=== PATIENT | female | born 1995 | race Caucasian/White ===

== ENCOUNTER → 2024-07-23 | Outpatient (CLI) | payer BC, SELFPAY ==
[2024-07-23 14:29] LABS: Basophils # (Auto) 0.1 Thou/mm3 (0.0-0.2); Basophils % (Auto) 1 % (0-2.5); Eosinophils # (Auto) 0.2 Thou/mm3 (0.0-0.5); Eosinophils % (Auto) 2 % (0-10); Hematocrit 34.3 % (36.0-46.0); Hemoglobin 10.7 g/dL (12.0-16.0); Immature Granulocytes % (Auto) 0 % (0-0); Immature Granulocytes Auto 0.04 Thou/mm3 (0.00-0.00); Lymphocytes # (Auto) 2.7 Thou/mm3 (1.0-4.8); Lymphocytes % (Auto) 21 % (10-50); Mean Corpuscular HGB Conc 31.2 g/dl (31.0-37.0); Mean Corpuscular Hemoglobin 22.9 pg (25.0-35.0); Mean Corpuscular Volume 73 fL (80-100); Monocytes % (Auto) 8 % (0-12); Neutrophils # (Auto) 9.1 Thou/mm3 (1.8-7.7); Neutrophils % (Auto) 70 % (37-80); Nucleated Red Blood Cell % 0 /100 WBC (0); Platelet Count 430 Thou/mm3 (140-440); Red Blood Count 4.67 Miln/mm3 (4.00-5.20); White Blood Count 13.1 Thou/mm3 (3.6-11.0)
[2024-07-23 15:02] LABS: Beta HCG,Quantitative 16194 mIU/mL (<5.0)
== END | disposition home or self-care (01) ==
LOC: COPL 13:19
PROVIDERS: PCP Physician Assistant; Referring Provider Obstetrics & Gynecology; Visit Provider Obstetrics & Gynecology
DX: O03.4 Incomplete spontaneous abortion without complication (principal)
CPT/HCPCS: 36415; 84702; 85025; 86850; 86900; 86901

== ENCOUNTER → 2024-07-25 | Outpatient (CLI) | payer BC, SELFPAY ==
[2024-07-25 09:31] LABS: Beta HCG,Quantitative 23046 mIU/mL (<5.0)
== END | disposition home or self-care (01) ==
PROVIDERS: PCP Obstetrics & Gynecology; Referring Provider Obstetrics & Gynecology; Visit Provider Obstetrics & Gynecology
DX: O03.4 Incomplete spontaneous abortion without complication (principal)
CPT/HCPCS: 36415; 84702

== ENCOUNTER → 2024-08-01 | Outpatient (CLI) | payer BC, SELFPAY ==
--- NOTE | 2024-08-01 12:30 | XR_ITS ---
Examination: OB Transvaginal ultrasound of the pelvis, complete Technique: Transvaginal sonographic images pelvis performed using vallejo scale imaging Exam date and time: August 01, 2024 1222 hrs. Indications: Vaginal bleeding episodes beginning one week ago. Findings: Uterus 9.5 cm pole 0.9 cm corresponds to 6 week 6 day gestational age, cardiac motion 131 BPM Adjacent subchorionic hemorrhage 6 x 8 x 9 mm Right ovary 2.9 cm arterial flow 15 mm hemorrhagic cyst Left ovary obscured by bowel gas Impression: Viable intrauterine gestation 6 weeks 6 days Recommend short-term follow-up transvaginal pelvic sonography given the subchorionic hemorrhage
== END | disposition home or self-care (01) ==
LOC: CDIM 12:15
PROVIDERS: PCP Nurse Practitioner Family; Referring Provider Obstetrics & Gynecology; Visit Provider Obstetrics & Gynecology
DX: O20.0 Threatened abortion (principal); Z3A.01 Less than 8 weeks gestation of pregnancy
CPT/HCPCS: 76817

== ENCOUNTER 2024-09-10 13:15 | Outpatient (AMB) | payer BC, MEDICAID, SELFPAY ==
[2024-09-10 13:38] VITALS: BP 128/84; PULSE 83; RESP 16; TEMP 36.8; O2SAT 98; BMI 39.9
--- NOTE | 2024-09-10 13:38 | AMB.OBINITIA ---
Vital Signs 09/10/24 13:38 Height 1.6 m Height Method Stated Weight 102.115 kg Weight Measurement Method Standing Scale BMI 39.9 BP 128/84 Blood Pressure Source Manual Cuff- Auscultation Blood Pressure Location Left Upper Arm Position Sitting Respiration 16 Pulse 83 Pulse Source Monitor Temp 98.3 F Temp Source Oral Pulse Oximetry (%) 98 Oxygen Delivery Method Room Air Allergies/Home Meds Allergies & Medications Allergies NKA* Allergy (Uncoded 09/10/24 13:39) Medication Reconciliation ferrous sulfate 325 mg (65 mg iron) tablet 325 mg PO QDAY 90 days #90 tabs 09/10/24 [Rx] folic acid 1 mg tablet 1 mg PO QDAY 90 days #90 tabs 09/10/24 [Rx] Intake Visit Data Collection New Patient or Established: Established Patient (seen at [facility] within 3 years) Reason for Visit:: CARE INITIAL Seen by Clinical Staff ONLY (RN/MA): No Concert Or Lecture Hall Manager Required: No Do You Feel Safe at Home: Yes Authorities Contacted: N/A PCP or OBGYN visit in last 3 months: Yes Hx Now: Yes Are you currently on any form of Control: No Last menstrual period: 06/10/24 Pain Present Currently: No Pain Scale Used: Galarza-Reyna/Numerical Pain scale:: 0 Smoking Status Smoking Status: Never smoker Questionnaires Covid-19 Vaccine Questionnaire Has patient been vacinated for Covid-19 Have you been vacinated for Covid-19: Yes PHQ-9 PHQ-2 Over the last 2 weeks, how often have you been bothered by any of the following problems? 1. Little interest or pleasure in doing things: not at all 2. Feeling down, depressed, or hopeless: not at all Total score: 0 PHQ-9 3. Trouble falling or staying asleep, or sleeping too much: Not at all 4. Feeling tired or having little energy: Not at all 5. Poor appetite or overeating: Not at all 6. Feeling bad about yourself - or that you are a failure or have let yourself or your family down: Not at all 7. Trouble concentrating on things, such as reading the newspaper or watching television: Not at all 8. Moving or speaking so slowly that other people could have noticed? - Or the opposite - being so fidgety or restless that you have been moving around a lot more than usual: not at all 9. Thoughts that you would be better off or of hurting yourself in some way: Not at all Total score: 0 Source: Developed by Drs. Nicolas Gregorio, Laura Lynch, Russell Martinez and colleagues, with an educational adilia from [employer]. Depression screen completed yes Social History Living Situation History Lives With: Family Housing: House Tobacco History Smoking Status: Never smoker Second Hand Smoke Exposure: No Alcohol History Alcohol Intake: Never Substance Use History Substance Use: NONE Domestic Abuse History Do You Feel Safe at Home: Yes Past Medical History Past Medical History Have you ever been diagnosed with any of the following: Neurological Problems Cerebrovascular Accident (CVA): No Transient Ischemic Attacks (TIA): No Dementia: No Guillain-Clements Syndrome: No Capps's Palsy: No Cardiology Problems Myocardial Infarction: No Cardiac Arrhythmia: No Atrial Fibrillation: No Angina: No Respiratory Problems Chronic Obstructive Pulmonary Disease (COPD): No Asthma: No Bronchitis: No Tuberculosis: No Hx Cough: No Cough: No Wheezing: No Chest Deformities: No Smoking: No Smoking Cessation Counseling: No Smoking Exposure: No Tobacco Use: No Stomache/Intestinal Problems Liver Cancer: No Hepatitis: No Cirrhosis: No Gall Bladder Disease: No Genital/Urinary Problems Chronic Kidney Disease: No Renal Disease: No Kidney Stones: No Reproductive Problems Breast Cancer: No Endometriosis: No Fibroids: No Musculoskeletal Problems Muscular Dystrophy: No Myasthenia Gravis: No Marfan's Syndrome: No Bone Cancer: No Arthritis: No Fractures: No Head,Eye,Nose,Throat Problems Cataracts: No Glaucoma: No Blind: No Retinal Detachment: No Macular Degeneration: No Deafness: No Endocrine Problems Diabetes Mellitus Type 1: No Diabetes Mellitus Type 2: No [place]'s Disease: No Graves' Disease: No Blood Problems Anemia: No Leukemia: No Hemophilia: No Thalassemia: No Sickle Cell Disease: No Clotting Problems: No Psychologic Problems Schizophrenia: No Recreational Drug Use: No Bipolar Disorder: No Depression: No Anxiety: No Behavior Problems: No Other Problems Hospitalization: No Autoimmune Disease: No Down Syndrome: No Surgical History Angioplasty: No Appendectomy: No Bariatric Surgery: No OB Initial Visit Menstrual History Menstrual reliability: definite Flow: normal Menstrual regularity: regular Monthly: Yes Age at menarche: 12 On control pills at conception: Yes Date of positive home test: 07/21/24 Associated symptoms (LMP): Denies amenorrhea, nausea, vomiting, fatigue, breast tenderness, urinary frequency, irritability, bloating or other OB History : 1 Para: 0 # of Living Children: 0 Infection History & Risk Evaluation History of STDs: none Genetic Screening & History Genetic Screening/Teratology Counseling - Includes patient, baby's father, or anyone in either family with: 1. Patient's age 35 years or older as of estimated date of delivery: No 2. Thalassemia (Tajik, [place]ian, Mediterranean, or Background); MCV less than 80: No 3. Neural Tube Defect (Meningomyelocele, Spina Bifida, or Anencephaly): No 4. Congenital Heart Defect: No 5. Down Syndrome: No 6. Jarred-Sachs (Ashkenazi Hoahaoism, Cajun, [place]): No 7. Cristopher Disease (Ashkenazi Hoahaoism): No 8. Familial Dysautonomia (Ashkenazi Hoahaoism): No 9. Sickle Cell Disease or Trait (): No 10. Hemophilia or other blood disorders: No 11. Muscular Dystrophy: No 12. Cystic Fibrosis: No 13. [place]'s Chorea: No 14. Mental Retardation/Autism: No 15. Other inherited genetic or chromosomal disorder: No 16. Maternal Metabolic Disorder (EG,TYPE 1 Diabetes, PKU): No 17. Patient or baby's father had a child with defects not listed above: No 18. Recurrent loss or a stillbirth: No 19. Medications (including supplements, vitamins, herbs or otc drugs)/illicit/recreational drugs/alcohol since last menstrual period: No 20. Any other: No Infection History 1. Live with someone with TB or exposed to TB: No 2. Rash or viral illness since last menstrual period: No 3. Hepatitis B,C: No Other (see comments) Source: [employer] Review of Systems Constitutional Constitutional: Denies fatigue Gastrointestinal Gastrointestinal: Denies bloating, Denies nausea and Denies vomiting Genitourinary Genitourinary: Denies amenorrhea and Denies urinary frequency Psychiatric Psychiatric: Denies irritability Endocrine Endocrine: Denies fatigue Office Procedures OB Clinic LOC & Office Proc's Nursing/Assessment Patient Status: Established Patient OB Clinic Nursing Assessment: Medication Reconciliation, Update PMH in EMR and Vital Signs OB Clinic Coordination of Care: Complex Care and Chronic Disease 1-5, Consent,records obtained, informed consent, Education Simp Pt/Fam, Lab and Imaging orders, Results/Orders obtained and Staff clarify orders Special Needs: Heart tones Established Patient Charge Established Patient Point Assignment: 135 Established Patient Point Charge: EP Level 4 (120-155) Bedside Ultrasounds US Transabdominal >14 weeks at bedside: Yes
== END 2024-09-10 14:02 | disposition home or self-care (01) ==
LOC: HODSOBC 13:15
PROVIDERS: PCP Nurse Practitioner Family; Referring Provider Nurse Practitioner Family; Supervising Provider Obstetrics & Gynecology; Visit Provider Obstetrics & Gynecology
DX: O09.891 Supervision of other high risk pregnancies, first trimester (principal); O99.011 Anemia complicating pregnancy, first trimester; Z3A.13 13 weeks gestation of pregnancy
CPT/HCPCS: 76805; 99214; G0463

== ENCOUNTER 2024-10-08 14:11 | Outpatient (AMB) | payer BC, MEDICAID, SELFPAY ==
[2024-10-08 14:26] VITALS: BP 136/86; PULSE 86; RESP 18; TEMP 36.2; O2SAT 97; BMI 40.1
--- NOTE | 2024-10-08 14:26 | OBCLNT_ITS ---
Vital Signs 10/08/24 14:26 Height 1.6 m Height Method Stated Weight 102.625 kg Weight Measurement Method Standing Scale BMI 40.1 BP 136/86 H Blood Pressure Source Automatic Cuff Blood Pressure Location Left Upper Arm Position Sitting Respiration 18 Pulse 86 Pulse Source Monitor Temp 97.2 F Temp Source Oral Pulse Oximetry (%) 97 Oxygen Delivery Method Room Air Allergies/Home Meds Allergies & Medications Allergies NKA* Allergy (Uncoded 10/08/24 14:29) Medication Reconciliation ferrous sulfate 325 mg (65 mg iron) tablet 325 mg PO QDAY 90 days #90 tabs 09/10/24 [Rx Confirmed 10/08/24] folic acid 1 mg tablet 1 mg PO QDAY 90 days #90 tabs 09/10/24 [Rx Confirmed 10/08/24] Intake Visit Data Collection New Patient or Established: Established Patient (seen at [facility] within 3 years) Reason for Visit:: - Routine visit at 17 weeks and 1 day gestation Seen by Clinical Staff ONLY (RN/MA): No Setter Helper Required: No Do You Feel Safe at Home: Yes Authorities Contacted: N/A PCP or OBGYN visit in last 3 months: Yes Date of Last PCP or OBGYN visit: 10/08/24 Hx Now: Yes Are you currently on any form of Control: No Pain Present Currently: No Pain Scale Used: Galarza-Reyna/Numerical Pain scale:: 0 Smoking Status Smoking Status: Never smoker Questionnaires Covid-19 Vaccine Questionnaire Has patient been vacinated for Covid-19 Have you been vacinated for Covid-19: Yes PHQ-9 PHQ-2 Over the last 2 weeks, how often have you been bothered by any of the following problems? 1. Little interest or pleasure in doing things: not at all 2. Feeling down, depressed, or hopeless: not at all Total score: 0 PHQ-9 3. Trouble falling or staying asleep, or sleeping too much: Not at all 4. Feeling tired or having little energy: Not at all 5. Poor appetite or overeating: Not at all 6. Feeling bad about yourself - or that you are a failure or have let yourself or your family down: Not at all 7. Trouble concentrating on things, such as reading the newspaper or watching television: Not at all 8. Moving or speaking so slowly that other people could have noticed? - Or the opposite - being so fidgety or restless that you have been moving around a lot more than usual: not at all 9. Thoughts that you would be better off or of hurting yourself in some way: Not at all Total score: 0 If you checked off any problems, how difficult have these problems made it for you to do your work, take care of things at home, or get along with other people?: not difficult at all Source: Developed by Drs. Nicolas Gregorio, Laura Lynch, Russell Martinez and colleagues, with an educational adilia from [employer]. Depression screen completed yes Social History Living Situation History Lives With: Family Housing: House Tobacco History Smoking Status: Never smoker Second Hand Smoke Exposure: No Alcohol History Alcohol Intake: Never Substance Use History Substance Use: NONE Domestic Abuse History Do You Feel Safe at Home: Yes Past Medical History Past Medical History Have you ever been diagnosed with any of the following: Neurological Problems Cerebrovascular Accident (CVA): No Transient Ischemic Attacks (TIA): No Dementia: No Guillain-[place] Syndrome: No Capps's Palsy: No Cardiology Problems Myocardial Infarction: No Cardiac Arrhythmia: No Atrial Fibrillation: No Angina: No Respiratory Problems Chronic Obstructive Pulmonary Disease (COPD): No Asthma: No Bronchitis: No Tuberculosis: No Hx Cough: No Cough: No Wheezing: No Chest Deformities: No Smoking: No Smoking Cessation Counseling: No Smoking Exposure: No Tobacco Use: No Stomache/Intestinal Problems Liver Cancer: No Hepatitis: No Cirrhosis: No Gall Bladder Disease: No Genital/Urinary Problems Renal Disease: No Kidney Stones: No Reproductive Problems Breast Cancer: No Endometriosis: No Fibroids: No Musculoskeletal Problems Muscular Dystrophy: No Myasthenia Gravis: No Marfan's Syndrome: No Bone Cancer: No Arthritis: No Fractures: No Head,Eye,Nose,Throat Problems Cataracts: No Glaucoma: No Blind: No Retinal Detachment: No Macular Degeneration: No Deafness: No Endocrine Problems Diabetes Mellitus Type 1: No Diabetes Mellitus Type 2: No [place]ab[place]'s Disease: No Graves' Disease: No Blood Problems Anemia: No Leukemia: No Hemophilia: No Thalassemia: No Sickle Cell Disease: No Clotting Problems: No Psychologic Problems Schizophrenia: No Recreational Drug Use: No Bipolar Disorder: No Depression: No Anxiety: No Behavior Problems: No Other Problems Hospitalization: No Down Syndrome: No Surgical History Angioplasty: No Appendectomy: No Bariatric Surgery: No History of Present Illness HPI Narrative - Ansley Gore is a 29-year-old at 17 weeks and 1 day gestation presenting for a routine visit. - Patient's estimated due date is March 17, 2025, with a last menstrual period of June 10, 2024. - She reports no current complaints or symptoms. - At approximately 6 weeks gestation, patient experienced one episode of vaginal bleeding. - This prompted an emergency room visit where a transvaginal ultrasound confirmed a viable intrauterine measuring 6 weeks and 6 days. - Patient denies any further episodes of vaginal bleeding since the initial incident. - She also denies any current cramping. - Patient appears to be adhering to care recommendations, attending scheduled appointments and completing ordered laboratory tests. No contractions/ LOF/VB, reports good FM No PICHARDO/VC/RUQ/Epig pain Care OB Visit Log OB Flowsheet Initial Weight: Not Recorded Date -?-?-?-?-?-?-?-?-?-?-?-?- EGA Weight Edema CTX Effacement BP Fundal ht Pres Dilation Effacement Station Visit Note Alb Glu FHR Mov 10/08/24 -?-?-?-?-?-?-?-?-?-?-?-?- 17w 1d 102.625 kg 136/86 Jackeline Gore, 29 y/o at 17w1d ([place] 03/17/2025, LMP 06/10/2024), presents for routine care. She reports no current symptoms and continues to follow care recommendations. At 6 weeks gestation, she experienced a single episode of vaginal bleeding, resolved without recurrence. No contractions, LOF, VB, or cramping. movement is appropriate. Bedside ultrasound shows active fetus with identifiable anatomy and FHR of 154 bpm. Labs show rubella non-immunity, trace ketonuria, and all other infectious screenings negative. Maternal serum screen negative; fetus is female. Plan: Follow up with [facility] for 2nd trimester anatomy ultrasound (patient to expect scheduling call within 1?2 weeks) Review and provide lab and genetic testi ng results, including gender Encourage hydration and small, frequent meals to address ketonuria Routine counseling and monitori ng for signs of labor or complications Follow up at next scheduled visit Ansley Gore, 29 y/o G1P 0 at 17w1d ([place] 03/17/2025, LMP 06/10/2024), presents for routine care. She reports no current symptoms and continues to follow care recommendations. At 6 weeks gestation, she experienced a single episode of vaginal bleeding, resolved without recurrence. No contractions, LOF, VB, or cramping. movement is appropriate. Bedside ultrasound shows active fetus with identifiable anatomy and FHR of 154 bpm. Labs show rubella non-immunity, trace ketonuria, and all other infectious screenings negative. Maternal serum screen negative; fetus is female. Plan: Follow up with [facility] for 2nd trimester anatomy ultrasound (patient to expect scheduling call within 1?2 weeks) Review and provide lab and genetic testi ng results, including gender Encourage hydration and small, frequent meals to address ketonuria Routine counseling and monitori ng for signs of labor or complications Follow up at next scheduled visit - Date: 10/02/2024 - Hepatitis B: Negative - Hepatitis C: Negative - VDRL (Syphilis): Non-reactive - Rubella: Non-immune - Blood Group: O positive - Antibody Screen: Negative - Gonorrhea: Negative - Chlamydia: Negative - CBC: - Hemoglobin: 12.7 g/dL - Hematocrit: 39.4% - Platelet count: 322 - Urinalysis: - Ketones: 1+ - Other parameters: Within normal li mits - Maternity Genome Test: Negative for all tested aneuploidies - sex: Female VERNON Calculator Estimated Delivery Date Method Current WG Current Estimate 03/17/25 LMP (Certain) 17w 3d Other Estimates 03/14/25 Ultrasound #1 17w 6d Exam General General Appearance: alert, in no apparent distress and healthy appearing Head Head exam: atraumatic Neck Neck exam: Present normal inspection and trachea midline Chest Chest inspection: Present normal inspection and symmetric chest wall rise External exam: Present normal external exam; Absent tenderness Neuro Neurological exam: Present oriented X3 Psych Psychiatric exam: Present normal affect and normal mood Assessment & Plan Diagnosis / Problem List (1) Supervision of high risk , unspecified, first trimester: Status: Acute Plan Problem List - , 17 weeks and 1 day - Rubella non-immune status - Ketonuria Assessment - Intrauterine at 17 weeks and 1 day gestation - Estimated due date of 03-17-2025 - heart rate 154 bpm - Previous episode of vaginal bleeding at 6 weeks, resolved - Rubella non-immune - Blood type O positive - Hemoglobin 12.7 g/dL, hematocrit 39.4% - Urine ketones 1+ - Negative for hepatitis B, hepatitis C, syphilis, gonorrhea, and chlamydia - Negative maternal serum screen for tested aneuploidies - Female fetus Plan - Follow up with [facility] for 2nd trimester ultrasound (referral sent, patient should expect call within 1-2 weeks) - Provide patient with lab results, including genetic testing results and gender information Educated the patient on labor signs, including regular contractions, lower back pain, and changes in vaginal discharge. Advised avoiding heavy lifting and getting adequate rest. Instructed to contact the office immediately if any signs occur. Discussed the importance of a balanced diet rich in folic acid, iron, and calcium, and provided a list of recommended and to-avoid foods. Emphasized avoiding high-sugar foods to reduce gestational diabetes risk. Encouraged hydration and frequent, small meals for energy.. Office Procedures OB Clinic LOC & Office Proc's Nursing/Assessment Patient Status: Established Patient OB Clinic Nursing Assessment: BP Monitoring, Medication Reconciliation, Update PMH in EMR and Vital Signs OB Clinic Coordination of Care: Consent,records obtained, informed consent, Education Simp Pt/Fam and Staff clarify orders Special Needs: Heart tones Established Patient Charge Established Patient Point Assignment: 105 Established Patient Point Charge: EP Level 3 (80-115)
== END 2024-10-08 15:10 | disposition home or self-care (01) ==
LOC: HODSOBC 14:11
PROVIDERS: PCP Obstetrics & Gynecology; Referring Provider Obstetrics & Gynecology; Supervising Provider Obstetrics & Gynecology; Visit Provider Obstetrics & Gynecology
DX: O09.92 Supervision of high risk pregnancy, unspecified, second trimester (principal); Z3A.17 17 weeks gestation of pregnancy; Z78.9 Other specified health status
CPT/HCPCS: 99213; G0463

== ENCOUNTER 2024-11-05 13:40 | Outpatient (AMB) | payer BC, MEDICAID, SELFPAY ==
--- NOTE | 2024-11-05 13:58 | OBCLNT_ITS ---
Vital Signs 11/05/24 13:59 Height 1.6 m Height Method Stated Weight 104.893 kg Weight Measurement Method Standing Scale BMI 40.9 BP 126/80 Blood Pressure Source Automatic Cuff Blood Pressure Location Right Upper Arm Position Sitting Respiration 18 Pulse 90 Pulse Source Monitor Temp 97.8 F Temp Source Oral Pulse Oximetry (%) 99 Oxygen Delivery Method Room Air Allergies/Home Meds Allergies & Medications Allergies NKA* Allergy (Uncoded 11/05/24 13:59) Medication Reconciliation ferrous sulfate 325 mg (65 mg iron) tablet 325 mg PO QDAY 90 days #90 tabs 09/10/24 [Rx Confirmed 11/05/24] folic acid 1 mg tablet 1 mg PO QDAY 90 days #90 tabs 09/10/24 [Rx Confirmed 11/05/24] Intake Visit Data Collection New Patient or Established: Established Patient (seen at [facility] within 3 years) Reason for Visit:: CARE Seen by Clinical Staff ONLY (RN/MA): No 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 1. Little interest or pleasure in doing things: not at all 2. Feeling down, depressed, or hopeless: not at all Total score: 0 PHQ-9 3. Trouble falling or staying asleep, or sleeping too much: Not at all 4. Feeling tired or having little energy: Not at all 5. Poor appetite or overeating: Not at all 6. Feeling bad about yourself - or that you are a failure or have let yourself or your family down: Not at all 7. Trouble concentrating on things, such as reading the newspaper or watching television: Not at all 8. Moving or speaking so slowly that other people could have noticed? - Or the opposite - being so fidgety or restless that you have been moving around a lot more than usual: not at all 9. Thoughts that you would be better off or of hurting yourself in some way: Not at all Total score: 0 Source: Developed by Drs. Nicolas Gregorio, Laura Lynch, Russell Martinez and colleagues, with an educational adilia from [employer]. 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 No contractions, LOF, VB and reports good FM. Patient reports headaches that came and went about a week ago. Denies VC, and epigastric pain. - Ansley Gore is a 29-year-old at 21 weeks and 1 day gestation presenting for a routine visit. VERNON: March 20, 2025. - Patient reports feeling movement. - She experienced headaches about a week ago: - Intermittent in nature - Resolved spontaneously - Denies nausea, vomiting, or cramping. - Patient attended a gender reveal green party last weekend and now knows the baby's gender. Care OB Visit Log OB Flowsheet Initial Weight: Not Recorded Date -?-?-?-?-?-?-?-?-?-?-?-?- EGA Weight BP Alb Glu CTX Pres Fundal ht FHR Mov Dilation Station Effacement Hx Notes Visit Note 10/08/24 -?-?-?-?-?-?-?-?-?-?-?-?- 17w 1d 102.625 kg 136/86 Ansley Gore, 29 y/o at 17w1d (VERNON 03/17/2025, LMP 06/10/2024), presents for routine care. She reports no current symptoms and continues to follow care recommendations. At 6 weeks gestation, she experienced a single episode of vaginal bleeding, resolved without recurrence. No contractions, LOF, VB, or cramping. movement is appropriate. Bedside ultrasound shows active fetus with identifiable anatomy and FHR of 154 bpm. Labs show rubella non-immunity, trace ketonuria, and all other infectious screenings negative. Maternal serum screen negative; fetus is female. Plan: Follow up with [facility] for 2nd trimester anatomy ultrasound (patient to expect scheduling call within 1?2 weeks) Review and provide lab and genetic testi ng results, including gender Encourage hydration and small, frequent meals to address ketonuria Routine counseling and monitori ng for signs of labor or complications Follow up at next scheduled visit Ansley Gore, 29 y/o G1P 0 at 17w1d (VERNON 03/17/2025, LMP 06/10/2024), presents for routine care. She reports no current symptoms and continues to follow care recommendations. At 6 weeks gestation, she experienced a single episode of vaginal bleeding, resolved without recurrence. No contractions, LOF, VB, or cramping. movement is appropriate. Bedside ultrasound shows active fetus with identifiable anatomy and FHR of 154 bpm. Labs show rubella non-immunity, trace ketonuria, and all other infectious screenings negative. Maternal serum screen negative; fetus is female. Plan: Follow up with [facility] for 2nd trimester anatomy ultrasound (patient to expect scheduling call within 1?2 weeks) Review and provide lab and genetic testi ng results, including gender Encourage hydration and small, frequent meals to address ketonuria Routine counseling and monitori ng for signs of labor or complications Follow up at next scheduled visit - Date: 10/02/2024 - Hepatitis B: Negative - Hepatitis C: Negative - VDRL (Syphilis): Non-reactive - Rubella: Non-immune - Blood Group: O positive - Antibody Screen: Negative - Gonorrhea: Negative - Chlamydia: Negative - CBC: - Hemoglobin: 12.7 g/dL - Hematocrit: 39.4% - Platelet count: 322 - Urinalysis: - Ketones: 1+ - Other parameters: Within normal [facility] - Maternity Genome Test: Negative for all tested aneuploidies - sex: Female 11/05/24 -?-?-?-?-?-?-?-?-?-?-?-?- 21w 1d 104.893 kg 126/80 at 21w1d, presents for routine care. VERNON 03/20/25. Reports good movement. Had intermittent headaches one week ago, now resolved. Denies contractions, LOF, VB, nausea, or vomiting. FHT 160 bpm. Plan: Glucose tolerance test ordered wit h fasting instructions. Next visit at 24 weeks. Tylenol PRN for headache. Follow-up on [facility] referral. Routine counseling provided. VERNON Calculator Estimated Delivery Date Method Current WG Current Estimate 03/17/25 LMP (Certain) 23w 2d Other Estimates 03/14/25 Ultrasound #1 23w 5d Exam General General Appearance: alert, in no apparent distress and healthy appearing Head Head exam: atraumatic Neck Neck exam: Present normal inspection and trachea midline Chest Chest inspection: Present normal inspection and symmetric chest wall rise External exam: Present normal external exam; Absent tenderness Neuro Neurological exam: Present oriented X3 Psych Psychiatric exam: Present normal affect and normal mood Office Procedures OB Clinic LOC & Office Proc's Nursing/Assessment Patient Status: Established Patient OB Clinic Nursing Assessment: Medication Reconciliation, Update PMH in EMR and Vital Signs OB Clinic Coordination of Care: Complex Care and Chronic Disease 1-5, Consent,records obtained, informed consent, Education Simp Pt/Fam, Lab and Imaging orders, Results/Orders obtained and Staff clarify orders Special Needs: Heart tones Established Patient Charge Established Patient Point Assignment: 135 Established Patient Point Charge: EP Level 4 (120-155) Assessment & Plan Diagnosis / Problem List (1) Supervision of high risk , unspecified, first trimester: Status: Acute Plan Problem List - , 21 weeks and 1 day - Headache Assessment at 21 weeks and 1 day gestation with VERNON of March 20, 2025, presenting for routine visit. Patient reports feeling movement. Denies nausea, vomiting, or cramping. Patient experienced intermittent headaches approximately one week ago. heart rate auscultated at 160 bpm, which is within normal range. Patient recently had a gender reveal. No other significant concerns or complications reported. Plan - Perform glucose tolerance test for gestational diabetes screening (patient to fast for 8 hours before the test) - Schedule next appointment at 24 weeks gestation - Patient advised to take Tylenol (up to 1000mg daily) for headaches if needed - Follow up on [facility] Ultrasound referral status 1. Progress Reviewed gestational age, growth, and heart rate. Planned frequent visits (every 2 weeks until 36 weeks, then weekly). 2. Instructed patient to monitor movements and report decreases immediately. 3. Testing Counseled on routine third-trimester labs per guidelines. Discussed potential need for ultrasound or monitoring based on risk factors. 4. Preeclampsia Precaution Educated on preeclampsia signs: severe headache, vision changes, right upper quadrant pain, sudden swelling. Advised urgent reporting of symptoms and discussed blood pressure monitoring if high risk. 5. Labor Precautions Reviewed labor signs: regular contractions, pelvic pressure, back pain, bleeding, or fluid leakage. Instructed to seek immediate care for these symptoms. 6. Lifestyle and Delivery Preparation Reinforced vitamins, nutrition, and safe activity. Discussed plan, pain management, and . Advised on labor preparation (e.g., hospital bag) and expectations. 7. Psychosocial Support Assessed emotional well-being and offered resources for mental health or parenting support.
[2024-11-05 13:59] VITALS: BP 126/80; PULSE 90; RESP 18; TEMP 36.6; O2SAT 99; BMI 40.9
== END 2024-11-05 14:44 | disposition home or self-care (01) ==
LOC: HODSOBC 13:40
PROVIDERS: PCP Obstetrics & Gynecology; Referring Provider Obstetrics & Gynecology; Supervising Provider Obstetrics & Gynecology; Visit Provider Obstetrics & Gynecology
DX: O09.92 Supervision of high risk pregnancy, unspecified, second trimester (principal); Z3A.21 21 weeks gestation of pregnancy
CPT/HCPCS: 99214; G0463

== ENCOUNTER 2024-12-03 14:01 | Outpatient (AMB) | payer BC, MEDICAID, SELFPAY ==
[2024-12-03 14:12] VITALS: BP 137/89; PULSE 95; RESP 17; TEMP 36.4; O2SAT 98; BMI 40.4
--- NOTE | 2024-12-03 14:12 | OBCLNT_ITS ---
Vital Signs 12/03/24 14:12 Height 1.63 m Height Method Measured Weight 106.708 kg Weight Measurement Method Standing Scale BMI 40.4 BP 137/89 H Blood Pressure Source Automatic Cuff Blood Pressure Location Right Upper Arm Position Sitting Respiration 17 Pulse 95 Pulse Source Monitor Temp 97.6 F Temp Source Temporal Artery Scan Pulse Oximetry (%) 98 Oxygen Delivery Method Room Air Allergies/Home Meds Allergies & Medications Allergies NKA* Allergy (Uncoded 11/05/24 13:59) Intake Visit Data Collection New Patient or Established: Established Patient (seen at [facility] within 3 years) Reason for Visit:: OBC Consent obtained for Telemed Visit: No Seen by Clinical Staff ONLY (RN/MA): No House Mother Required: No Do You Feel Safe at Home: Yes Authorities Contacted: N/A PCP or OBGYN visit in last 3 months: Yes Date of Last PCP or OBGYN visit: 11/05/24 Hx Now: Yes Are you currently on any form of Control: No Pain Present Currently: No Pain Scale Used: Galarza-Reyna/Numerical Pain scale:: 0 Smoking Status Smoking Status: Never smoker Questionnaires Covid-19 Vaccine Questionnaire Has patient been vacinated for Covid-19 Have you been vacinated for Covid-19: Yes PHQ-9 PHQ-2 Over the last 2 weeks, how often have you been bothered by any of the following problems? 1. Little interest or pleasure in doing things: not at all 2. Feeling down, depressed, or hopeless: not at all Total score: 0 PHQ-9 3. Trouble falling or staying asleep, or sleeping too much: Not at all 4. Feeling tired or having little energy: Not at all 5. Poor appetite or overeating: Not at all 6. Feeling bad about yourself - or that you are a failure or have let yourself or your family down: Not at all 7. Trouble concentrating on things, such as reading the newspaper or watching television: Not at all 8. Moving or speaking so slowly that other people could have noticed? - Or the opposite - being so fidgety or restless that you have been moving around a lot more than usual: not at all 9. Thoughts that you would be better off or of hurting yourself in some way: Not at all Total score: 0 If you checked off any problems, how difficult have these problems made it for you to do your work, take care of things at home, or get along with other people?: not difficult at all Source: Developed by Drs. Nicolas Gregorio, Laura Lynch, Russell Martinez and colleagues, with an educational adilia from [email or web address]. 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 No contractions, LOF, VB and reports good FM. Denies PICHARDO, VC, and epigastric pain. - Ansley Gore is a 29-year-old at 25 weeks and 1 day gestation pre senting for a routine visit. - Patient reports feeling good overall. - She notes increased movement. - I feel a lot more movement now. - No complaints of diabetes or glucose-related issues reported. - Patient expresses concern about potential illness due to family members getting sick. - Inquired about safe medications to take if she develops a cough or cold. Care OB Visit Log OB Flowsheet Initial Weight: Not Recorded Date -?-?-?-?-?-?-?-?-?-?-?-?- EGA Weight BP Alb Glu CTX Pres Fundal ht FHR Mov Dilation Station Effacement Hx Notes Visit Note 10/08/24 -?-?-?-?-?-?-?-?-?-?-?-?- 17w 1d 102.625 kg 136/86 Ansley Gore, 29 y/o at 17w1d (VERNON 03/17/2025, LMP 06/10/2024), presents for routine care. She reports no current symptoms and continues to follow care recommendations. At 6 weeks gestation, she experienced a single episode of vaginal bleeding, resolved without recurrence. No contractions, LOF, VB, or cramping. movement is appropriate. Bedside ultrasound shows active fetus with identifiable anatomy and FHR of 154 bpm. Labs show rubella non-immunity, trace ketonuria, and all other infectious screenings negative. Maternal serum screen negative; fetus is female. Plan: Follow up with [facility] for 2nd trimester anatomy ultrasound (patient to expect scheduling call within 1?2 weeks) Review and provide lab and genetic testi ng results, including gender Encourage hydration and small, frequent meals to address ketonuria Routine counseling and monitori ng for signs of labor or complications Follow up at next scheduled visit Ansley Gore, 29 y/o G1P 0 at 17w1d (VERNON 03/17/2025, LMP 06/10/2024), presents for routine care. She reports no current symptoms and continues to follow care recommendations. At 6 weeks gestation, she experienced a single episode of vaginal bleeding, resolved without recurrence. No contractions, LOF, VB, or cramping. movement is appropriate. Bedside ultrasound shows active fetus with identifiable anatomy and FHR of 154 bpm. Labs show rubella non-immunity, trace ketonuria, and all other infectious screenings negative. Maternal serum screen negative; fetus is female. Plan: Follow up with [facility] for 2nd trimester anatomy ultrasound (patient to expect scheduling call within 1?2 weeks) Review and provide lab and genetic testi ng results, including gender Encourage hydration and small, frequent meals to address ketonuria Routine counseling and monitori ng for signs of labor or complications Follow up at next scheduled visit - Date: 10/02/2024 - Hepatitis B: Negative - Hepatitis C: Negative - VDRL (Syphilis): Non-reactive - Rubella: Non-immune - Blood Group: O positive - Antibody Screen: Negative - Gonorrhea: Negative - Chlamydia: Negative - CBC: - Hemoglobin: 12.7 g/dL - Hematocrit: 39.4% - Platelet count: 322 - Urinalysis: - Ketones: 1+ - Other parameters: [facility] - Maternity Genome Test: Negative for all tested aneuploidies - sex: Female 11/05/24 -?-?-?-?-?-?-?-?-?-?-?-?- 21w 1d 104.893 kg 126/80 at 21w1d, presents for routine care. VERNON 03/20/25. Reports good movement. Had intermittent headaches one week ago, now resolved. Denies contractions, LOF, VB, nausea, or vomiting. FHT 160 bpm. Plan: Glucose tolerance test ordered wit h fasting instructions. Next visit at 24 weeks. Tylenol PRN for headache. Follow-up on [facility] US referral. Routine counseling provided. 12/03/24 -?-?-?-?-?-?-?-?-?-?-?-?- 25w 1d 106.708 kg 137/89 24 150 active No CTX/LOF/VB, reports ?FM. FHR 150. Glucose screen 118 Reviewed safe OTC options for URI (Benadryl or Robitussin; avoid Sudafed). FU in 4 wks, review sono, labs at 28 & 34wks. [facility] visit 12/26 VERNON Calculator Estimated Delivery Date Method Current WG Current Estimate 03/17/25 LMP (Certain) 25w 1d Other Estimates 03/14/25 Ultrasound #1 25w 4d Exam General General Appearance: alert, in no apparent distress and healthy appearing Head Head exam: atraumatic Neck Neck exam: Present normal inspection and trachea midline Chest Chest inspection: Present normal inspection and symmetric chest wall rise External exam: Present normal external exam; Absent tenderness Neuro Neurological exam: Present oriented X3 Psych Psychiatric exam: Present normal affect and normal mood Office Procedures OB Clinic LOC & Office Proc's Nursing/Assessment Patient Status: Established Patient OB Clinic Nursing Assessment: Medication Reconciliation, Update PMH in EMR and Vital Signs OB Clinic Coordination of Care: Complex Care and Chronic Disease 1-5, Consent,records obtained, informed consent, 4+ Authorizations needed, Results/Orders obtained and Staff clarify orders Special Needs: Heart tones Established Patient Charge Established Patient Point Assignment: 130 Established Patient Point Charge: EP Level 4 (120-155) Assessment & Plan Diagnosis / Problem List (1) Supervision of high risk , unspecified, second trimester: Status: Acute Plan Problem List - , 25 weeks and 1 day Assessment 29-year-old at 25 weeks and 1 day gestation presenting for routine visit. One-hour glucose screening on 11/27 was 118, interpreted as negative for gestational diabetes. heart rate auscultated at 150 bpm, within normal range. Patient reports increased movement. No anemia screening results available at this time. Patient inquired about safe medications for potential upper respiratory infection symptoms during . Plan - Follow-up appointment scheduled in 4 weeks - Ultrasound report to be reviewed at next appointment - Anemia screening to be performed at 28 weeks - Additional labs to be conducted at 34 weeks - Continue monitoring growth - [facility]'s appointment scheduled for December 26 (before 28 weeks gestation) - For cold symptoms: can take Benadryl or Robitussin; avoid medications containing Sudafed 1. Progress Reviewed gestational age, growth, and heart rate. Planned frequent visits (every 2 weeks until 36 weeks, then weekly). 2. Instructed patient to monitor movements and report decreases immediately. 3. Testing Counseled on routine third-trimester labs per guidelines. Discussed potential need for ultrasound or monitoring based on risk factors. 4. Preeclampsia Precaution Educated on preeclampsia signs: severe headache, vision changes, right upper quadrant pain, sudden swelling. Advised urgent reporting of symptoms and discussed blood pressure monitoring if high risk. 5. Labor Precautions Reviewed labor signs: regular contractions, pelvic pressure, back pain, bleeding, or fluid leakage. Instructed to seek immediate care for these symptoms. 6. Lifestyle and Delivery Preparation Reinforced vitamins, nutrition, and safe activity. Discussed plan, pain management, and . Advised on labor preparation (e.g., hospital bag) and expectations. 7. Psychosocial Support Assessed emotional well-being and offered resources for mental health or jason bee support.
== END 2024-12-03 14:20 | disposition home or self-care (01) ==
LOC: HODSOBC 14:01
PROVIDERS: PCP Obstetrics & Gynecology; Referring Provider Obstetrics & Gynecology; Supervising Provider Obstetrics & Gynecology; Visit Provider Obstetrics & Gynecology
DX: O09.92 Supervision of high risk pregnancy, unspecified, second trimester (principal); Z3A.25 25 weeks gestation of pregnancy
CPT/HCPCS: 99214; G0463

== ENCOUNTER 2024-12-31 14:03 | Outpatient (AMB) | payer BC, MEDICAID, SELFPAY ==
[2024-12-31 14:15] VITALS: BP 123/80; PULSE 82; RESP 17; TEMP 36.5; O2SAT 95; BMI 40.7
--- NOTE | 2024-12-31 14:15 | OBCLNT_ITS ---
Vital Signs 12/31/24 14:15 Height 1.63 m Height Method Stated Weight 108.182 kg Weight Measurement Method Standing Scale BMI 40.7 BP 123/80 Blood Pressure Source Automatic Cuff Blood Pressure Location Right Upper Arm Position Sitting Respiration 17 Pulse 82 Pulse Source Monitor Temp 97.7 F Temp Source Temporal Artery Scan Pulse Oximetry (%) 95 Oxygen Delivery Method Room Air Allergies/Home Meds Allergies & Medications Allergies NKA* Allergy (Uncoded 02/07/25 08:48) Medication Reconciliation ferrous sulfate 325 mg (65 mg iron) tablet 325 mg PO QDAY 90 days #90 tabs 09/10/24 [Rx Confirmed 02/07/25] folic acid 1 mg tablet 1 mg PO QDAY 90 days #90 tabs 09/10/24 [Rx Confirmed 02/07/25] Intake Visit Data Collection New Patient or Established: Established Patient (seen at [facility] within 3 years) Reason for Visit:: OBC Seen by Clinical Staff ONLY (RN/MA): No Slurry Tank Operator Required: No Do You Feel Safe at Home: Yes Authorities Contacted: N/A PCP or OBGYN visit in last 3 months: Yes Date of Last PCP or OBGYN visit: 12/03/24 Hx Now: Yes Are you currently on any form of Control: No Pain Present Currently: Yes Pain Location: Back and Neck Pain Scale Used: Galarza-Reyna/Numerical Pain scale:: 4 Smoking Status Smoking Status: Never smoker Questionnaires Covid-19 Vaccine Questionnaire Has patient been vacinated for Covid-19 Have you been vacinated for Covid-19: No PHQ-9 PHQ-2 Over the last 2 weeks, how often have you been bothered by any of the following problems? 1. Little interest or pleasure in doing things: not at all 2. Feeling down, depressed, or hopeless: not at all Total score: 0 PHQ-9 3. Trouble falling or staying asleep, or sleeping too much: Not at all 4. Feeling tired or having little energy: Not at all 5. Poor appetite or overeating: Not at all 6. Feeling bad about yourself - or that you are a failure or have let yourself or your family down: Not at all 7. Trouble concentrating on things, such as reading the newspaper or watching television: Not at all 8. Moving or speaking so slowly that other people could have noticed? - Or the opposite - being so fidgety or restless that you have been moving around a lot more than usual: not at all 9. Thoughts that you would be better off or of hurting yourself in some way: Not at all Total score: 0 If you checked off any problems, how difficult have these problems made it for you to do your work, take care of things at home, or get along with other people?: not difficult at all Source: Developed by Drs. Nicolas Gregorio, Laura Lynch, Russell Martinez and colleagues, with an educational adilia from [employer]. 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 She reports no current symptoms and continues to follow care recommendations. At 6 weeks gestation, she experienced a single episode of vaginal bleeding, resolved without recurrence. No contractions, LOF, VB, or cramping. movement is appropriate. Bedside ultrasound shows active fetus with identifiable anatomy and FHR of 154 bpm. Labs show rubella non-immunity, trace ketonuria, and all other infectious screenings negative. Maternal serum screen negative; fetus is female. Plan: Follow up with [facility] for 2nd trimester anatomy ultrasound (patient to expect scheduling call within 1?2 weeks) Review and provide lab and genetic testi ng results, including gender Encourage hydration and small, frequent meals to address ketonuria Routine counseling and monitori ng for signs of labor or complications Follow up at next scheduled visit Ansley Gore, 29 y/o G1P 0 at 17w1d ([place] 03/17/2025, LMP 06/10/2024), presents for routine care. She reports no current symptoms and continues to follow care recommendations. At 6 weeks gestation, she experienced a single episode of vaginal bleeding, resolved without recurrence. No contractions, LOF, VB, or cramping. movement is appropriate. Bedside ultrasound shows active fetus with identifiable anatomy and FHR of 154 bpm. Labs show rubella non-immunity, trace ketonuria, and all other infectious screenings negative. Maternal serum screen negative; fetus is female. Plan: Follow up with [facility] for 2nd trimester anatomy ultrasound (patient to expect scheduling call within 1?2 weeks) Review and provide lab and genetic testi ng results, including gender Encourage hydration and small, frequent meals to address ketonuria Routine counseling and monitori ng for signs of labor or complications Follow up at next scheduled visit - Date: 10/02/2024 - Hepatitis B: Negative - Hepatitis C: Negative - VDRL (Syphilis): Non-reactive - Rubella: Non-immune - Blood Group: O positive - Antibody Screen: Negative - Gonorrhea: Negative - Chlamydia: Negative - CBC: - Hemoglobin: 12.7 g/dL - Hematocrit: 39.4% - Platelet count: 322 - Urinalysis: - Ketones: 1+ - Other parameters: Within normal li [facility] - Maternity Genome Test: Negative for all tested aneuploidies - sex: Female [birth year] -?-?-?-?-?-?-?-?-?-?-?-?- 21w 1d 104.893 kg 126/80 at 21w1d, presents for routine care. VERNON 03/20/25. Reports good movement. Had intermittent headaches one week ago, now resolved. Denies contractions, LOF, VB, nausea, or vomiting. FHT 160 bpm. Plan: Glucose tolerance test ordered wit h fasting instructions. Next visit at 24 weeks. Tylenol PRN for headache. Follow-up on [facility] referral. Routine counseling provided. 12/03/24 -?-?-?-?-?-?-?-?-?-?-?-?- w 1d 106.708 kg 137/89 24 150 active No CTX/LOF/VB, reports ?FM. FHR 150. Glucose screen 118 Reviewed safe OTC options for URI (Benadryl or Robitussin; avoid Sudafed). FU in 4 wks, review sono, labs at 28 & 34wks. VC visit 12/2612/31/24 -?-?-?-?-?-?-?-?-?-?-?-?- 29w 1d 108.182 kg 123/80 absent unknown 29 active No contractions, LOF, VB and reports good FM. Denies PICHARDO, VC, and epigastric pain. Return with labs in 2 weeks. PTL precautions 02/07/25 -?-?-?-?-?-?-?-?-?-?-?-?- 34w 4d 109.769 kg 135/82 occasional cephalic 34 active No contractions, LOF, VB and reports good FM. Denies PICHARDO, VC, and epigastric pain. - Patient reports overall good health wi th some fatigue. - She notes the baby is starting to caus e discomfort: - Baby tends to lay on one side more - Patient experiences increased pain d ue to this positioning - Patient is still working. - Patient is considering options and inquired about W IC program. Plan - MFM ultrasound scheduled for today at 1:30 PM at 35 weeks gestation - Follow-up appointment in 2 weeks - Subsequent appointments to be weekly - After delivery, patient to obtain WIC form for women from WIC office - Provider to complete WIC form with [facility] data (length, height, weight) after delivery VERNON Calculator Estimated Delivery Date Method Current WG Current Estimate 03/17/25 LMP (Certain) 34w 6d Other Estimates 03/14/25 Ultrasound #1 35w 2d Office Procedures OB Clinic LOC & Office Proc's Nursing/Assessment Patient Status: Established Patient OB Clinic Nursing Assessment: Medication Reconciliation, Update PMH in EMR and Vital Signs OB Clinic Coordination of Care: Complex Care and Chronic Disease 1-5, Consen t,records obtained, informed consent, Education Simp Pt/Fam and Staff clarify orders Special Needs: Heart tones Established Patient Charge Established Patient Point Assignment: 115 Established Patient Point Charge: EP Level 3 (80-115) Immunizations diphth,pertus(acell),tetanus 2.5 Lf unit-8 mcg-5 Lf/0.5mL IM syringe Performing Provider: Salo Weeks MD Performing Location: [facility] Administered by: Sabina Aranda MA on 12/31/24 14:35 Dose Route Admin Location Dispensed Lot Number Expiration Date Pack age ND ND Vp 0.5 mL IM Left Deltoid 0.5 mL [id number] 02/01/27 42820-093-42 [id number] [employer] VIS Given Date VIS Provided VIS Publication Date 12/31/24 Single Vaccine 24 Eligibility Eligibility Date Funding Source [facility] Non-[facility]
== END 2024-12-31 14:42 | disposition home or self-care (01) ==
LOC: HODSOBC 14:03
PROVIDERS: PCP Obstetrics & Gynecology; Referring Provider Obstetrics & Gynecology; Supervising Provider Obstetrics & Gynecology; Visit Provider Obstetrics & Gynecology
DX: Z34.03 Encounter for supervision of normal first pregnancy, third trimester (principal); Z3A.29 29 weeks gestation of pregnancy; Z23 Encounter for immunization
CPT/HCPCS: 90471; 90715; 99213; G0463

== ENCOUNTER 2025-01-14 13:06 | Outpatient (AMB) | payer BC, MEDICAID, SELFPAY ==
[2025-01-14 13:32] VITALS: BP 123/85; PULSE 81; RESP 17; TEMP 36.5; O2SAT 96; BMI 40.8
--- NOTE | 2025-01-14 13:32 | AMB.OBVISIT ---
Vital Signs 01/14/25 13:32 Height 1.63 m Height Method Measured Weight 108.635 kg Weight Measurement Method Standing Scale BMI 40.8 BP 123/85 H Blood Pressure Source Automatic Cuff Blood Pressure Location Right Upper Arm Position Sitting Respiration 17 Pulse 81 Pulse Source Monitor Temp 97.7 F Temp Source Temporal Artery Scan Pulse Oximetry (%) 96 Oxygen Delivery Method Room Air Allergies/Home Meds Allergies & Medications Allergies NKA* Allergy (Uncoded 02/07/25 08:48) Medication Reconciliation ferrous sulfate 325 mg (65 mg iron) tablet 325 mg PO QDAY 90 days #90 tabs 09/10/24 [Rx Confirmed 02/07/25] folic acid 1 mg tablet 1 mg PO QDAY 90 days #90 tabs 09/10/24 [Rx Confirmed 02/07/25] Intake Visit Data Collection New Patient or Established: Established Patient (seen at [facility] within 3 years) Reason for Visit:: OBC Consent obtained for Telemed Visit: No Seen by Clinical Staff ONLY (RN/MA): No Beef Specialist Required: No Do You Feel Safe at Home: Yes Authorities Contacted: N/A PCP or OBGYN visit in last 3 months: Yes Date of Last PCP or OBGYN visit: 12/31/24 Hx Now: Yes Are you currently on any form of Control: No Pain Present Currently: Yes Pain Location: Back Pain scale:: 6 Smoking Status Smoking Status: Never smoker Questionnaires Covid-19 Vaccine Questionnaire Has patient been vacinated for Covid-19 Have you been vacinated for Covid-19: No PHQ-9 PHQ-2 Over the last 2 weeks, how often have you been bothered by any of the following problems? 1. Little interest or pleasure in doing things: not at all PHQ-9 3. Trouble falling or staying asleep, or sleeping too much: Not at all 4. Feeling tired or having little energy: Not at all 5. Poor appetite or overeating: Not at all 6. Feeling bad about yourself - or that you are a failure or have let yourself or your family down: Not at all 7. Trouble concentrating on things, such as reading the newspaper or watching television: Not at all 8. Moving or speaking so slowly that other people could have noticed? - Or the opposite - being so fidgety or restless that you have been moving around a lot more than usual: not at all 9. Thoughts that you would be better off or of hurting yourself in some way: Not at all If you checked off any problems, how difficult have these problems made it for you to do your work, take care of things at home, or get along with other people?: not difficult at all Source: Developed by Drs. Nicolas Gregorio, Laura Lynch, Russell Martinez and colleagues, with an educational adilia from [employer]. 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 She reports no current symptoms and continues to follow care recommendations. At 6 weeks gestation, she experienced a single episode of vaginal bleeding, resolved without recurrence. No contractions, LOF, VB, or cramping. movement is appropriate. Bedside ultrasound shows active fetus with identifiable anatomy and FHR of 154 bpm. Labs show rubella non-immunity, trace ketonuria, and all other infectious screenings negative. Maternal serum screen negative; fetus is female. Plan: Follow up with [facility] for 2nd trimester anatomy ultrasound (patient to expect scheduling call within 1?2 weeks) Review and provide lab and genetic testing results, including gender Encourage hydration and small, frequent meals to address ketonuria Routine counseling and monitoring for signs of labor or complications Follow up at next scheduled visit Ansley Gore, 29 y/o at 17w1d ([place] 03/17/2025, LMP 06/10/2024), presents for routine care. She reports no current symptoms and continues to follow care recommendations. At 6 weeks gestation, she experienced a single episode of vaginal bleeding, resolved without recurrence. No contractions, LOF, VB, or cramping. movement is appropriate. Bedside ultrasound shows active fetus with identifiable anatomy and FHR of 154 bpm. Labs show rubella non-immunity, trace ketonuria, and all other infectious screenings negative. Maternal serum screen negative; fetus is female. Plan: Follow up with [facility] for 2nd trimester anatomy ultrasound (patient to expect scheduling call within 1?2 weeks) Review and provide lab and genetic testing results, including gender Encourage hydration and small, frequent meals to address ketonuria Routine counseling and monitoring for signs of labor or complications Follow up at next scheduled visit - Date: 10/02/2024 - Hepatitis B: Negative - Hepatitis C: Negative - VDRL (Syphilis): Non-reactive - Rubella: Non-immune - Blood Group: O positive - Antibody Screen: Negative - Gonorrhea: Negative - Chlamydia: Negative - CBC: - Hemoglobin: 12.7 g/dL - Hematocrit: 39.4% - Platelet count: 322 - Urinalysis: - Ketones: 1+ - Other parameters: Within normal limits - Maternity Genome Test: Negative for all tested aneuploidies - sex: Female [birth year] <del>?</del> 21w 1d 104.893 kg 126/80 at 21w1d, presents for routine care. VERNON 03/20/25. Reports good movement. Had intermittent headaches one week ago, now resolved. Denies contractions, LOF, VB, nausea, or vomiting. FHT 160 bpm. Plan: Glucose tolerance test ordered with fasting instructions. Next visit at 24 weeks. Tylenol PRN for headache. Follow-up on [facility] referral. Routine counseling provided. 12/03/24 <del>?</del> 25w 1d 106.708 kg 137/89 24 150 active No CTX/LOF/VB, reports ?FM. FHR 150. Glucose screen 118 Reviewed safe OTC options for URI (Benadryl or Robitussin; avoid Sudafed). FU in 4 wks, review sono, labs at 28 & 34wks. [facility] visit 12/2612/31/24 <del>?</del> 29w 1d 108.182 kg 123/80 absent unknown 29 active No contractions, LOF, VB and reports good FM. Denies PICHARDO, VC, and epigastric pain. Return with labs in 2 weeks. PTL precautions 01/14/25 <del>?</del> 31w 1d 108.635 kg 123/85 absent cephalic 31 142 active - Patient reports: - Baby is active - No contractions - Patient has a history of asthma - Next ultrasound scheduled for February 07 (around 35-36 weeks gestation) - Follow-up appointment scheduled in 2 weeks - Subsequent appointments to be scheduled weekly after next visit (at 35 weeks) - Continue vitamins - Monitor for labor symptoms: contractions more frequent than every 5 minutes, leaking fluid, bleeding, decreased movement - Next growth ultrasound scheduled for February 07 (35-36 weeks gestation) - Patient provided with copy of lab results 02/07/25 <del>?</del> 34w 4d 109.769 kg 135/82 occasional cephalic 34 active No contractions, LOF, VB and reports good FM. Denies PICHARDO, VC, and epigastric pain. - Patient reports overall good health with some fatigue. - She notes the baby is starting to cause discomfort: - Baby tends to lay on one side more - Patient experiences increased pain due to this positioning - Patient is still working. - Patient is considering options and inquired about WIC program. Plan - M ultrasound scheduled for today at 1:30 PM at 35 weeks gestation - Follow-up appointment in 2 weeks - Subsequent appointments to be weekly - After delivery, patient to obtain WIC form for women from WIC office - Provider to complete WIC form with data (length, height, weight) after delivery VERNON Calculator Estimated Delivery Date Method Current WG Current Estimate 03/17/25 LMP (Certain) 35w 1d Other Estimates 03/14/25 Ultrasound #1 35w 4d Notes Visit Date: 01/14/25 Last Updated by: Salo eWeks MD - CBC: Hemoglobin 13 g/dL - RTR (Rapid Test for Rubella): Non-reactive - Atpia: Negative - Infection screening: Negative Office Procedures OB Clinic LOC & Office Proc's Nursing/Assessment Patient Status: Established Patient OB Clinic Nursing Assessment: Medication Reconciliation, Update PMH in EMR and Vital Signs OB Clinic Coordination of Care: Complex Care and Chronic Disease 1-5, Consent,records obtained, informed consent, Education Simp Pt/Fam, 4+ Authorizations needed and Results/Orders obtained Special Needs: Heart tones Established Patient Charge Established Patient Point Assignment: 135 Established Patient Point Charge: EP Level 4 (120-155) Assessment & Plan Diagnosis / Problem List (1) Supervision of high risk , unspecified, third trimester: Status: Acute
== END 2025-01-14 14:09 | disposition home or self-care (01) ==
LOC: HODSOBC 13:06
PROVIDERS: Supervising Provider Obstetrics & Gynecology; Visit Provider Obstetrics & Gynecology
DX: O09.893 Supervision of other high risk pregnancies, third trimester (principal); O99.513 Diseases of the respiratory system complicating pregnancy, third trimester; J45.909 Unspecified asthma, uncomplicated; Z3A.31 31 weeks gestation of pregnancy
CPT/HCPCS: 99214; G0463

== ENCOUNTER 2025-02-07 08:30 | Outpatient (AMB) | payer BC, MEDICAID, SELFPAY ==
[2025-02-07 08:47] VITALS: BP 135/82; PULSE 96; RESP 16; TEMP 36.2; O2SAT 98; BMI 41.3
--- NOTE | 2025-02-07 08:47 | OBCLNT_ITS ---
Vital Signs 02/07/25 08:47 Height 1.63 m Height Method Stated Weight 109.769 kg Weight Measurement Method Standing Scale BMI 41.3 BP 135/82 H Blood Pressure Source Automatic Cuff Blood Pressure Location Left Upper Arm Position Sitting Respiration 16 Pulse 96 Pulse Source Monitor Temp 97.2 F Temp Source Oral Pulse Oximetry (%) 98 Oxygen Delivery Method Room Air Allergies/Home Meds Allergies & Medications Allergies NKA* Allergy (Uncoded 02/07/25 08:48) Medication Reconciliation ferrous sulfate 325 mg (65 mg iron) tablet 325 mg PO QDAY 90 days #90 tabs 09/10/24 [Rx Confirmed 02/07/25] folic acid 1 mg tablet 1 mg PO QDAY 90 days #90 tabs 09/10/24 [Rx Confirmed 02/07/25] Intake Visit Data Collection New Patient or Established: Established Patient (seen at [facility] within 3 years) Reason for Visit:: OBC Seen by Clinical Staff ONLY (RN/MA): No Digital Archivist Required: No Do You Feel Safe at Home: Yes Authorities Contacted: N/A PCP or OBGYN visit in last 3 months: Yes Date of Last PCP or OBGYN visit: 01/14/25 Hx Now: Yes Are you currently on any form of Control: No Pain Present Currently: No Pain Scale Used: Galarza-Reyna/Numerical Pain scale:: 0 Smoking Status Smoking Status: Never smoker Questionnaires Covid-19 Vaccine Questionnaire Has patient been vacinated for Covid-19 Have you been vacinated for Covid-19: Yes PHQ-9 PHQ-2 Over the last 2 weeks, how often have you been bothered by any of the following problems? 1. Little interest or pleasure in doing things: not at all 2. Feeling down, depressed, or hopeless: not at all Total score: 0 PHQ-9 3. Trouble falling or staying asleep, or sleeping too much: Not at all 4. Feeling tired or having little energy: Not at all 5. Poor appetite or overeating: Not at all 6. Feeling bad about yourself - or that you are a failure or have let yourself or your family down: Not at all 7. Trouble concentrating on things, such as reading the newspaper or watching television: Not at all 8. Moving or speaking so slowly that other people could have noticed? - Or the opposite - being so fidgety or restless that you have been moving around a lot more than usual: not at all 9. Thoughts that you would be better off or of hurting yourself in some way: Not at all Total score: 0 If you checked off any problems, how difficult have these problems made it for you to do your work, take care of things at home, or get along with other people?: not difficult at all Source: Developed by Drs. Nicolas Gregorio, Laura Lynch, Russell Martinez and colleagues, with an educational adilia from [employer] 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 She reports no current symptoms and continues to follow care recommendations. At 6 weeks gestation, she experienced a single episode of vaginal bleeding, resolved without recurrence. No contractions, LOF, VB, or cramping. movement is appropriate. Bedside ultrasound shows active fetus with identifiable anatomy and FHR of 154 bpm. Labs show rubella non-immunity, trace ketonuria, and all other infectious screenings negative. Maternal serum screen negative; fetus is female. Plan: Follow up with [facility] for 2nd trimester anatomy ultrasound (patient to expect scheduling call within 1?2 weeks) Review and provide lab and genetic testi ng results, including gender Encourage hydration and small, frequent meals to address ketonuria Routine counseling and monitori ng for signs of labor or complications Follow up at next scheduled visit Ansley Gore, 29 y/o G1P 0 at 17w1d ([place] 03/17/2025, LMP 06/10/2024), presents for routine care. She reports no current symptoms and continues to follow care recommendations. At 6 weeks gestation, she experienced a single episode of vaginal bleeding, resolved without recurrence. No contractions, LOF, VB, or cramping. movement is appropriate. Bedside ultrasound shows active fetus with identifiable anatomy and FHR of 154 bpm. Labs show rubella non-immunity, trace ketonuria, and all other infectious screenings negative. Maternal serum screen negative; fetus is female. Plan: Follow up with [facility] for 2nd trimester anatomy ultrasound (patient to expect scheduling call within 1?2 weeks) Review and provide lab and genetic testi ng results, including gender Encourage hydration and small, frequent meals to address ketonuria Routine counseling and monitori ng for signs of labor or complications Follow up at next scheduled visit - Date: 10/02/2024 - Hepatitis B: Negative - Hepatitis C: Negative - VDRL (Syphilis): Non-reactive - Rubella: Non-immune - Blood Group: O positive - Antibody Screen: Negative - Gonorrhea: Negative - Chlamydia: Negative - CBC: - Hemoglobin: 12.7 g/dL - Hematocrit: 39.4% - Platelet count: 322 - Urinalysis: - Ketones: 1+ - Other parameters: Within normal li [facility] - Maternity Genome Test: Negative for all tested aneuploidies - sex: Female [birth year] -?-?-?-?-?-?-?-?-?-?-?-?- 21w 1d 104.893 kg 126/80 at 21w1d, presents for routine care. VERNON 03/20/25. Reports good movement. Had intermittent headaches one week ago, now resolved. Denies contractions, LOF, VB, nausea, or vomiting. FHT 160 bpm. Plan: Glucose tolerance test ordered wit h fasting instructions. Next visit at 24 weeks. Tylenol PRN for headache. Follow-up on [facility]?s referral. Routine counseling provided. 12/03/24 -?-?-?-?-?-?-?-?-?-?-?-?- 25w 1d 106.708 kg 137/89 24 150 active No CTX/LOF/VB, reports ?FM. FHR 150. Glucose screen 118 Reviewed safe OTC options for URI (Benadryl or Robitussin; avoid Sudafed). FU in 4 wks, review sono, labs at 28 & 34wks. VC visit 12/2612/31/24 -?-?-?-?-?-?-?-?-?-?-?-?- 29w 1d 108.182 kg 123/80 absent unknown 29 active No contractions, LOF, VB and reports good FM. Denies PICHARDO, VC, and epigastric pain. Return with labs in 2 weeks. PTL precautions 02/07/25 -?-?-?-?-?-?-?-?-?-?-?-?- 34w 4d 109.769 kg 135/82 occasional cephalic 34 active No contractions, LOF, VB and reports good FM. Denies PICHARDO, VC, and epigastric pain. - Patient reports overall good health wi th some fatigue. - She notes the baby is starting to caus e discomfort: - Baby tends to lay on one side more - Patient experiences increased pain d ue to this positioning - Patient is still working. - Patient is considering options and inquired about W IC program. Plan - MFM ultrasound scheduled for today at 1:30 PM at 35 weeks gestation - Follow-up appointment in 2 weeks - Subsequent appointments to be weekly - After delivery, patient to obtain WIC form for women from [facility] office - Provider to complete WIC form with [facility] data (length, height, weight) after delivery VERNON Calculator Estimated Delivery Date Method Current WG Current Estimate 03/17/25 LMP (Certain) 34w 6d Other Estimates 03/14/25 Ultrasound #1 35w 2d Office Procedures OB Clinic LOC & Office Proc's Nursing/Assessment Patient Status: Established Patient OB Clinic Nursing Assessment: Medication Reconciliation, Update PMH in EMR and Vital Signs OB Clinic Coordination of Care: Education Complex Pt/Fam, Consent,records obtained, informed consent, Results/Orders obtained and Staff clarify orders Special Needs: Heart tones Established Patient Charge Established Patient Point Assignment: 100 Established Patient Point Charge: EP Level 3 (80-115) Assessment & Plan Diagnosis / Problem List (1) Supervision of high risk , unspecified, second trimester: Status: Acute
== END 2025-02-07 09:36 | disposition home or self-care (01) ==
LOC: HODSOBC 08:30
PROVIDERS: Supervising Provider Obstetrics & Gynecology; Visit Provider Obstetrics & Gynecology
DX: O09.93 Supervision of high risk pregnancy, unspecified, third trimester (principal); Z3A.34 34 weeks gestation of pregnancy
CPT/HCPCS: 99213; G0463

== ENCOUNTER 2025-02-24 13:05 | Outpatient (AMB) | payer BC, MEDICAID, SELFPAY ==
[2025-02-24 13:15] VITALS: BP 121/84; PULSE 89; RESP 18; TEMP 36.4; O2SAT 98; BMI 41.3
--- NOTE | 2025-02-24 13:15 | OBCLNT_ITS ---
Vital Signs 02/24/25 13:15 Height 1.63 m Height Method Stated Weight 109.826 kg Weight Measurement Method Standing Scale BMI 41.3 BP 121/84 Blood Pressure Source Automatic Cuff Blood Pressure Location Right Upper Arm Position Sitting Respiration 18 Pulse 89 Pulse Source Monitor Temp 97.6 F Temp Source Oral Pulse Oximetry (%) 98 Oxygen Delivery Method Room Air Allergies/Home Meds Allergies & Medications Allergies NKA* Allergy (Uncoded 02/24/25 13:16) Medication Reconciliation ferrous sulfate 325 mg (65 mg iron) tablet 325 mg PO QDAY 90 days #90 tabs 09/10/24 [Rx Confirmed 02/24/25] folic acid 1 mg tablet 1 mg PO QDAY 90 days #90 tabs 09/10/24 [Rx Confirmed 02/24/25] Intake Visit Data Collection New Patient or Established: Established Patient (seen at [facility] within 3 years) Reason for Visit:: Care Do You Feel Safe at Home: Yes Authorities Contacted: N/A PCP or OBGYN visit in last 3 months: Yes Pain Location: Back Pain Scale Used: Galarza-Reyna/Numerical Pain scale:: 4 Smoking Status Smoking Status: Never smoker Questionnaires Covid-19 Vaccine Questionnaire Has patient been vacinated for Covid-19 Have you been vacinated for Covid-19: Yes PHQ-9 PHQ-2 Over the last 2 weeks, how often have you been bothered by any of the following problems? 1. Little interest or pleasure in doing things: not at all 2. Feeling down, depressed, or hopeless: not at all Total score: 0 PHQ-9 3. Trouble falling or staying asleep, or sleeping too much: Not at all 4. Feeling tired or having little energy: Not at all 5. Poor appetite or overeating: Not at all 6. Feeling bad about yourself - or that you are a failure or have let yourself or your family down: Not at all 7. Trouble concentrating on things, such as reading the newspaper or watching television: Not at all 8. Moving or speaking so slowly that other people could have noticed? - Or the opposite - being so fidgety or restless that you have been moving around a lot more than usual: not at all 9. Thoughts that you would be better off or of hurting yourself in some way: Not at all Total score: 0 If you checked off any problems, how difficult have these problems made it for you to do your work, take care of things at home, or get along with other people?: not difficult at all Source: Developed by Drs. Nicolas Gregorio, Laura Lynch, Russell Martinez and colleagues, with an educational adilia from [employer]. 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 She reports no current symptoms and continues to follow care recommendations. At 6 weeks gestation, she experienced a single episode of vaginal bleeding, resolved without recurrence. No contractions, LOF, VB, or cramping. movement is appropriate. Bedside ultrasound shows active fetus with identifiable anatomy and FHR of 154 bpm. Labs show rubella non-immunity, trace ketonuria, and all other infectious screenings negative. Maternal serum screen negative; fetus is female. Plan: Follow up with [facility] for 2nd trimester anatomy ultrasound (patient to expect scheduling call within 1?2 weeks) Review and provide lab and genetic testi ng results, including gender Encourage hydration and small, frequent meals to address ketonuria Routine counseling and monitori ng for signs of labor or complications Follow up at next scheduled visit Eboni Shepherd y/o G1P 0 at 17w1d ([place] 03/17/2025, LMP 06/10/2024), presents for routine care. She reports no current symptoms and continues to follow care recommendations. At 6 weeks gestation, she experienced a single episode of vaginal bleeding, resolved without recurrence. No contractions, LOF, VB, or cramping. movement is appropriate. Bedside ultrasound shows active fetus with identifiable anatomy and FHR of 154 bpm. Labs show rubella non-immunity, trace ketonuria, and all other infectious screenings negative. Maternal serum screen negative; fetus is female. Plan: Follow up with [facility]?s for 2nd trimester anatomy ultrasound (patient to expect scheduling call within 1?2 weeks) Review and provide lab and genetic testi ng results, including gender Encourage hydration and small, frequent meals to address ketonuria Routine counseling and monitori ng for signs of labor or complications Follow up at next scheduled visit - Date: 10/02/2024 - Hepatitis B: Negative - Hepatitis C: Negative - VDRL (Syphilis): Non-reactive - Rubella: Non-immune - Blood Group: O positive - Antibody Screen: Negative - Gonorrhea: Negative - Chlamydia: Negative - CBC: - Hemoglobin: 12.7 g/dL - Hematocrit: 39.4% - Platelet count: 322 - Urinalysis: - Ketones: 1+ - Other parameters: Within normal li [facility] - Maternity Genome Test: Negative for all tested aneuploidies - sex: Female [birth year] -?-?-?-?-?-?-?-?-?-?-?-?- 21w 1d 104.893 kg 126/80 at 21w1d, presents for routine care. VERNON 03/20/25. Reports good movement. Had intermittent headaches one week ago, now resolved. Denies contractions, LOF, VB, nausea, or vomiting. FHT 160 bpm. Plan: Glucose tolerance test ordered wit h fasting instructions. Next visit at 24 weeks. Tylenol PRN for headache. Follow-up on [facility] referral. Routine counseling provided. 12/03/24 -?-?-?-?-?-?-?-?-?-?-?-?- 25w 1d 106.708 kg 137/89 24 150 active No CTX/LOF/VB, reports ?FM. FHR 150. Glucose screen 118 Reviewed safe OTC options for URI (Benadryl or Robitussin; avoid Sudafed). FU in 4 wks, review sono, labs at 28 & 34wks. [facility] visit 12/2612/31/24 -?-?-?-?-?-?-?-?-?-?-?-?- 29w 1d 108.182 kg 123/80 absent unknown 29 active No contractions, LOF, VB and reports good FM. Denies PICHARDO, VC, and epigastric pain. Return with labs in 2 weeks. PTL precautions 01/14/25 -?-?-?-?-?-?-?-?-?-?-?-?- 31w 1d 108.635 kg 123/85 absent cephalic 31 14 2 active - Patient reports: - Baby is active - No contractions - Patient has a history of asthma - Next ultrasound scheduled for February 07 (around 35-36 weeks g estation) - Follow-up appointment scheduled in 2 weeks - Subsequent appointments to be schedule d weekly after next visit (at 35 weeks) - Continue vitamins - Monitor for labor symptoms: contractio ns more frequent than every 5 minutes, leaking fluid, bleeding, decreased movement - Next growth ultrasound scheduled for roseanne (35-36 weeks gestation) - Patient provided with copy of lab resu lts 02/07/25 -?-?-?-?-?-?-?-?-?-?-?-?- 34w 4d 109.769 kg 135/82 occasional cephalic 34 active No contractions, LOF, VB and reports good FM. Denies PICHARDO, VC, and epigastric pain. - Patient reports overall good health wi th some fatigue. - She notes the baby is starting to caus e discomfort: - Baby tends to lay on one side more - Patient experiences increased pain d ue to this positioning - Patient is still working. - Patient is considering options and inquired about W IC program. Plan - [facility] ultrasound scheduled for today at 1:30 PM at 35 weeks gestation - Follow-up appointment in 2 weeks - Subsequent appointments to be weekly - After delivery, patient to obtain WIC form for women from [place] office - Provider to complete WIC form with [facility] data (length, height, weight) after delivery 02/24/25 -?-?-?-?-?-?-?-?-?-?-?-?- 37w 0d 109.826 kg 121/84 absent cephalic 37 14 5 active No contractions, LOF, VB and reports good FM. Denies PICHARDO, VC, and epigastric pain. - Patient reports experiencing an unusua l pain yesterday: - Location: Upper abdomen where the ba by likes to hang out - Timing: Occurred when going to bed - Duration: Not specified, but patient fell asleep afterwards - Character: Described as weird and unlike anything felt before - Denies current contractions or other i ssues - Patient has been conducting research on and labor - Perform Group B Streptococcus (GBS) screening - Schedule 39-week appointment for membr ane sweeping - Continue monitoring for signs of labor , instructing patient to time contractions if they occur every 5-7 minutes - Recommend close monitoring of blood pr essure - Consider anesthesia consultation due t o maternal obesity VERNON Calculator Estimated Delivery Date Method Current WG Current Estimate 03/17/25 LMP (Certain) 37w 1d Other Estimates 03/14/25 Ultrasound #1 37w 4d Notes Visit Date: 02/24/25 Last Updated by: Salo Weeks MD - Maternal ultrasound (02/07/2025): - Estimated weight: 2733 grams (77th percentile at 34 weeks and 4 days) - ARIK: Normal Visit Date: 01/14/25 Last Updated by: Salo Weeks MD - CBC: Hemoglobin 13 g/dL - RTR (Rapid Test for Rubella): Non-reactive - Atpia: Negative - Infection screening: Negative Assessment & Plan Diagnosis / Problem List (1) Supervision of high risk , unspecified, third trimester: Status: Acute Plan Problem List - , 37 weeks gestation - Maternal obesity Assessment at 37 weeks 0 days gestation with VERNON 03/17/2025. Patient reports experiencing intermittent pain in the upper uterine region, consistent with early labor contractions. heart rate auscultated at 138-139 bpm, within normal limits. Recent maternal ultrasound at 34 weeks 4 days showed estimated weight of 2733 grams (77th percentile), normal amniotic fluid index, and recommended close blood pressure monitoring. Current blood pressure is 121/80 mmHg. Group B Streptococcus screening performed during this visit. Plan - Perform Group B Streptococcus (GBS) screening - Schedule 39-week appointment for membrane sweeping - Continue monitoring for signs of labor, instructing patient to time contractions if they occur every 5-7 minutes - Recommend close monitoring of blood pressure - Consider anesthesia consultation due to maternal obesity 1. Progress Reviewed gestational age (37 weeks and 0 days), growth (estimated weight 2733 grams, 77th percentile at 34 weeks and 4 days), and heart rate (138-139 bpm). Planned frequent visits (every 2 weeks until 36 weeks, then weekly). 2. Instructed patient to monitor movements and report decreases immediately. 3. Testing Counseled on routine third-trimester labs per guidelines. Discussed potential need for ultrasound or monitoring based on risk factors. 4. Preeclampsia Precaution Educated on preeclampsia signs: severe headache, vision changes, right upper quadrant pain, sudden swelling. Advised urgent reporting of symptoms and discussed blood pressure monitoring if high risk. 5. Labor Precautions Reviewed labor signs: regular contractions, pelvic pressure, back pain, bleeding, or fluid leakage. Instructed to seek immediate care for these symptoms. 6. Lifestyle and Delivery Preparation Reinforced vitamins, nutrition, and safe activity. Discussed plan, pain management, and . Advised on labor preparation (e.g., hospital bag) and expectations. 7. Psychosocial Support Assessed emotional well-being and offered resources for mental health or parenting support.
== END 2025-02-24 13:49 | disposition home or self-care (01) ==
LOC: HODSOBC 13:05
PROVIDERS: Supervising Provider Obstetrics & Gynecology; Visit Provider Obstetrics & Gynecology
DX: O09.893 Supervision of other high risk pregnancies, third trimester (principal); Z3A.37 37 weeks gestation of pregnancy; O99.213 Obesity complicating pregnancy, third trimester; Z36.85 Encounter for antenatal screening for Streptococcus B
CPT/HCPCS: 99214; G0463

== ENCOUNTER 2025-03-05 15:30 | Outpatient (AMB) | payer BC, MEDICAID, SELFPAY ==
[2025-03-05 15:49] VITALS: BP 130/84; PULSE 86; RESP 16; TEMP 35.8; O2SAT 98; BMI 41.9
--- NOTE | 2025-03-05 15:49 | OBCLNT_ITS ---
Vital Signs 03/05/25 15:49 Height 1.63 m Height Method Stated Weight 111.357 kg Weight Measurement Method Standing Scale BMI 41.9 BP 130/84 Blood Pressure Source Automatic Cuff Blood Pressure Location Left Upper Arm Position Sitting Respiration 16 Pulse 86 Pulse Source Monitor Temp 96.5 F L Temp Source Oral Pulse Oximetry (%) 98 Oxygen Delivery Method Room Air Allergies/Home Meds Allergies & Medications Allergies NKA* Allergy (Uncoded 03/05/25 15:50) Medication Reconciliation ferrous sulfate 325 mg (65 mg iron) tablet 325 mg PO QDAY 90 days #90 tabs 09/10/24 [Rx Confirmed 03/05/25] folic acid 1 mg tablet 1 mg PO QDAY 90 days #90 tabs 09/10/24 [Rx Confirmed 03/05/25] Intake Visit Data Collection New Patient or Established: Established Patient (seen at [facility] within 3 years) Reason for Visit:: CARE Seen by Clinical Staff ONLY (RN/MA): No Residential Child Care Counselor Required: No Do You Feel Safe at Home: Yes Authorities Contacted: N/A PCP or OBGYN visit in last 3 months: Yes Hx Now: Yes Are you currently on any form of Control: No Pain Present Currently: No Pain Scale Used: Galarza-Reyna/Numerical Pain scale:: 0 Smoking Status Smoking Status: Never smoker Questionnaires Covid-19 Vaccine Questionnaire Has patient been vacinated for Covid-19 Have you been vacinated for Covid-19: Yes PHQ-9 PHQ-2 Over the last 2 weeks, how often have you been bothered by any of the following problems? 1. Little interest or pleasure in doing things: not at all 2. Feeling down, depressed, or hopeless: not at all Total score: 0 PHQ-9 3. Trouble falling or staying asleep, or sleeping too much: Not at all 4. Feeling tired or having little energy: Not at all 5. Poor appetite or overeating: Not at all 6. Feeling bad about yourself - or that you are a failure or have let yourself or your family down: Not at all 7. Trouble concentrating on things, such as reading the newspaper or watching television: Not at all 8. Moving or speaking so slowly that other people could have noticed? - Or the opposite - being so fidgety or restless that you have been moving around a lot more than usual: not at all 9. Thoughts that you would be better off or of hurting yourself in some way: Not at all Total score: 0 Source: Developed by Drs. Nicolas Gregorio, Laura Lynch, Russell Martinez and colleagues, with an educational adilia from [email or web address]. Depression screen completed yes Social History Living Situation History Lives With: Family Housing: House Tobacco History Smoking Status: Never smoker Second Hand Smoke Exposure: No Alcohol History Alcohol Intake: Never Substance Use History Substance Use: NONE Domestic Abuse History Do You Feel Safe at Home: Yes [employer]: Past Medical History Past Medical History: No Hx Breast Cancer, No Hx Anemia, No Hx Renal Disease, No Hx Diabetes Mellitus Type 1 and No Hx Diabetes Mellitus Type 2 Care OB Visit Log OB Flowsheet Initial Weight: Not Recorded Date -?-?-?-?-?-?-?-?-?-?-?-?- EGA Weight BP Alb Glu CTX Pres Fundal ht FHR Mov Dilation Station Eff acement Hx Notes Visit Note 10/08/24 -?-?-?-?-?-?-?-?-?-?-?-?- 17w 1d 102.625 kg 136/86 Ansley Gore, 29 y/o at 17w1d ([place] 03/17/2025, LMP 06/10/2024), presents for routine care. She reports no current symptoms and continues to follow care recommendations. At 6 weeks gestation, she experienced a single episode of vaginal bleeding, resolved without recurrence. No contractions, LOF, VB, or cramping. movement is appropriate. Bedside ultrasound shows active fetus with identifiable anatomy and FHR of 154 bpm. Labs show rubella non-immunity, trace ketonuria, and all other infectious screenings negative. Maternal serum screen negative; fetus is female. Plan: Follow up with [facility] for 2nd trimester anatomy ultrasound (patient to expect scheduling call within 1?2 weeks) Review and provide lab and genetic testi ng results, including gender Encourage hydration and small, frequent meals to address ketonuria Routine counseling and monitori ng for signs of labor or complications Follow up at next scheduled visit Ansley Gore, 29 y/o G1P 0 at 17w1d ([place] 03/17/2025, LMP 06/10/2024), presents for routine care. She reports no current symptoms and continues to follow care recommendations. At 6 weeks gestation, she experienced a single episode of vaginal bleeding, resolved without recurrence. No contractions, LOF, VB, or cramping. movement is appropriate. Bedside ultr asound shows active fetus with identifiable anatomy and FHR of 154 bpm. Labs show rubella non-immunity, trace ketonuria, and all other infectious screenings negative. Maternal serum screen negative; fetus is female. Plan: Follow up with [facility] for 2nd trimester anatomy ultrasound (patient to expect scheduling call within 1?2 weeks) Review and provide lab and genetic testi ng results, including gender Encourage hydration and small, frequent meals to address ketonuria Routine counseling and monitori ng for signs of labor or complications Follow up at next scheduled visit - Date: 10/02/2024 - Hepatitis B: Negative - Hepatitis C: Negative - VDRL (Syphilis): Non-reactive - Rubella: Non-immune - Blood Group: O positive - Antibody Screen: Negative - Gonorrhea: Negative - Chlamydia: Negative - CBC: - Hemoglobin: 12.7 g/dL - Hematocrit: 39.4% - Platelet count: 322 - Urinalysis: - Ketones: 1+ - Other parameters: Within normal [facility] - Maternity Genome Test: Negative for all tested aneuploidies - sex: Female 11/05/24 -?-?-?-?-?-?-?-?-?-?-?-?- 21w 1d 104.893 kg 126/80 at 21w1d, presents for routine care. VERNON 03/20/25. Reports good movement. Had intermittent headaches one week ago, now resolved. Denies contractions, LOF, VB, nausea, or vomiting. FHT 160 bpm. Plan: Glucose tolerance test ordered wit h fasting instructions. Next visit at 24 weeks. Tylenol PRN for headache. Follow-up on [facility] US referral. Routine counseling provided. 12/03/24 -?-?-?-?-?-?-?-?-?-?-?-?- 25w 1d 106.708 kg 137/89 24 150 active No CTX/LOF/VB, reports ?FM. FHR 150. Glucose screen 118 Reviewed safe OTC options for URI (Benadryl or Robitussin; avoid Sudafed). FU in 4 wks, review sono, labs at 28 & 34wks. [facility] visit 12/2612/31/24 -?-?-?-?-?-?-?-?-?-?-?-?- 29w 1d 108.182 kg 123/80 absent unknown 29 active No contractions, LOF, VB and reports good FM. Denies PICHARDO, VC, and epigastric pain. Return with labs in 2 weeks. PTL precautions 01/14/25 -?-?-?-?-?-?-?-?-?-?-?-?- 31w 1d 108.635 kg 123/85 absent cephalic 31 14 2 active - Patient reports: - Baby is active - No contractions - Patient has a history of asthma - Next ultrasound scheduled for February 07 (around 35-36 weeks g estation) - Follow-up appointment scheduled in 2 weeks - Subsequent appointments to be schedule d weekly after next visit (at 35 weeks) - Continue vitamins - Monitor for labor symptoms: contractio ns more frequent than every 5 minutes, leaking fluid, bleeding, decreased movement - Next growth ultrasound scheduled for (35-36 weeks gestation) - Patient provided with copy of lab resu lts 02/07/25 -?-?-?-?-?-?-?-?-?-?-?-?- 34w 4d 109.769 kg 135/82 occasional cephalic 34 active No contractions, LOF, VB and reports good FM. Denies PICHARDO, VC, and epigastric pain. - Patient reports overall good health wi th some fatigue. - She notes the baby is starting to caus e discomfort: - Baby tends to lay on one side more - Patient experiences increased pain d ue to this positioning - Patient is still working. - Patient is considering options and inquired about W IC program. Plan - M ultrasound scheduled for today at 1:30 PM at 35 weeks gestation - Follow-up appointment in 2 weeks - Subsequent appointments to be weekly - After delivery, patient to obtain WIC form for women from [place] office - Provider to complete WIC form with [facility] data (length, height, weight) after delivery 02/24/25 -?-?-?-?-?-?-?-?-?-?-?-?- 37w 0d 109.826 kg 121/84 absent cephalic 37 14 5 active No contractions, LOF, VB and reports good FM. Denies PICHARDO, VC, and epigastric pain. - Patient reports experiencing an unusua l pain yesterday: - Location: Upper abdomen where the ba by likes to hang out - Timing: Occurred when going to bed - Duration: Not specified, but patient fell asleep afterwards - Character: Described as weird and unlike anything felt before - Denies current contractions or other i ssues - Patient has been conducting research on and labor - Perform Group B Streptococcus (GBS) screening - Schedule 39-week appointment for membr ane sweeping - Continue monitoring for signs of labor , instructing patient to time contractions if they occur every 5-7 minutes - Recommend close monitoring of blood pr essure - Consider anesthesia consultation due t o maternal obesity 03/05/25 -?-?-?-?-?-?-?-?-?-?-?-?- 38w 2d 111.357 kg 130/84 occasional cephalic 39 170 active - She reports the baby is active with no contractions, leaking, or bleeding. - She describes increased movement , particularly when she wants to go to bed, stating when I want to go to bed, she starts wanting to move around. - She reports walking slowly at the gym for exercise. - Her last day of work was Monday (er ) and she has started dis ability leave. - She denies any concerning symptoms and states we're good right n ow. - Schedule membrane sweep next week - Continue exercise, including walking a t the gym and using exercise ball 3 times daily - Complete disability paperwork with sta rt date of 03/01 - [place] at hospital for updated insur ance information - Follow up appointment in one week VERNON Calculator Estimated Delivery Date Method Current WG Current Estimate 03/17/25 LMP (Certain) 38w 6d Other Estimates 03/14/25 Ultrasound #1 39w 2d Notes Visit Date: 02/24/25 Last Updated by: Salo Weeks MD - Maternal ultrasound (02/07/2025): - Estimated weight: 2733 grams (77th percentile at 34 weeks and 4 days) - ARIK: Normal Visit Date: 01/14/25 Last Updated by: Salo Weeks MD - CBC: Hemoglobin 13 g/dL - RTR (Rapid Test for Rubella): Non-reactive - Atpia: Negative - Infection screening: Negative Office Procedures [facility] LOC & Office Proc's Nursing/Assessment Patient Status: Established Patient OB Clinic Nursing Assessment: Medication Reconciliation, Update PMH in EMR and Vital Signs OB Clinic Coordination of Care: Complex Care and Chronic Disease 1-5, Consent,records obtained, informed consent, Education Simp Pt/Fam, Lab and Imaging orders, Results/Orders obtained and Staff clarify orders Special Needs: Heart tones Established Patient Charge Established Patient Point Assignment: 135 Established Patient Point Charge: EP Level 4 (120-155) Assessment & Plan Diagnosis / Problem List (1) Supervision of high risk , unspecified, third trimester: Status: Acute Plan Problem List - , 38 weeks and 2 days - Maternal obesity - Elevated BMI - Mild anemia - Rubella non-immune status Assessment at 38 weeks and 2 days gestation with a art . is complicated by maternal obesity with elevated BMI. Estimated weight was at the 77th percentile at 34-week ultrasound. Patient has mild anemia and rubella non-immune status. Group B strep screening on 02/26/2025 was negative. heart rate auscultated at 170 bpm, which is within normal limits. Patient reports good movement and denies contractions, vaginal leaking, or bleeding. Plan - Schedule membrane sweep next week - Continue exercise, including walking at the gym and using exercise ball 3 times daily - Complete disability paperwork with start date of 03/01 - [place] at hospital for updated insurance information - Follow up appointment in one week 1. Progress Reviewed gestational age (38 weeks and 2 days), growth (estimated weight at 77th percentile at 34-week ultrasound), and heart rate (170 bpm, normal). Planned frequent visits (every 2 weeks until 36 weeks, then weekly). 2. Instructed patient to monitor movements and report decreases immediately. 3. Testing Counseled on routine third-trimester labs per guidelines. Discussed potential need for ultrasound or monitoring based on risk factors. 4. Preeclampsia Precaution Educated on preeclampsia signs: severe headache, vision changes, right upper quadrant pain, sudden swelling. Advised urgent reporting of symptoms and discussed blood pressure monitoring if high risk. 5. Labor Precautions Reviewed labor signs: regular contractions, pelvic pressure, back pain, bleeding, or fluid leakage. Instructed to seek immediate care for these symptoms. 6. Lifestyle and Delivery Preparation Reinforced vitamins, nutrition, and safe activity. Discussed plan, pain management, and . Advised on labor preparation (e.g., hospital bag) and expectations. 7. Psychosocial Support Assessed emotional well-being and offered resources for mental health or parenting support.
== END 2025-03-05 15:57 | disposition home or self-care (01) ==
PROVIDERS: Supervising Provider Obstetrics & Gynecology; Visit Provider Obstetrics & Gynecology
DX: O09.893 Supervision of other high risk pregnancies, third trimester (principal); O99.213 Obesity complicating pregnancy, third trimester; O99.013 Anemia complicating pregnancy, third trimester; Z3A.38 38 weeks gestation of pregnancy; Z78.9 Other specified health status
CPT/HCPCS: 99214; G0463

== ENCOUNTER 2025-03-13 14:24 | Outpatient (AMB) | payer BC, MEDICAID, SELFPAY ==
[2025-03-13 14:29] VITALS: BP 139/90; PULSE 94; RESP 16; TEMP 36.2; O2SAT 98; BMI 42.3
--- NOTE | 2025-03-13 14:29 | OBCLNT_ITS ---
Vital Signs 03/13/25 14:29 Height 1.63 m Height Method Stated Weight 112.548 kg Weight Measurement Method Standing Scale BMI 42.3 BP 139/90 H Blood Pressure Source Automatic Cuff Blood Pressure Location Left Upper Arm Position Sitting Respiration 16 Pulse 94 Pulse Source Monitor Temp 97.2 F Temp Source Oral Pulse Oximetry (%) 98 Oxygen Delivery Method Room Air Allergies/Home Meds Allergies & Medications Allergies NKA* Allergy (Uncoded 03/20/25 13:52) Medication Reconciliation ferrous sulfate 325 mg (65 mg iron) tablet 325 mg PO QDAY 90 days #90 tabs 09/10/24 [Rx Confirmed 03/20/25] folic acid 1 mg tablet 1 mg PO QDAY 90 days #90 tabs 09/10/24 [Rx Confirmed 03/20/25] Intake Visit Data Collection New Patient or Established: Established Patient (seen at [facility] within 3 years) Reason for Visit:: OBC Seen by Clinical Staff ONLY (RN/MA): No 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 1. Little interest or pleasure in doing things: not at all 2. Feeling down, depressed, or hopeless: not at all Total score: 0 PHQ-9 3. Trouble falling or staying asleep, or sleeping too much: Not at all 4. Feeling tired or having little energy: Not at all 5. Poor appetite or overeating: Not at all 6. Feeling bad about yourself - or that you are a failure or have let yourself or your family down: Not at all 7. Trouble concentrating on things, such as reading the newspaper or watching television: Not at all 8. Moving or speaking so slowly that other people could have noticed? - Or the opposite - being so fidgety or restless that you have been moving around a lot more than usual: not at all 9. Thoughts that you would be better off or of hurting yourself in some way: Not at all Total score: 0 If you checked off any problems, how difficult have these problems made it for you to do your work, take care of things at home, or get along with other people?: not difficult at all Source: Developed by Drs. Nicolas Gregorio, Laura Lynch, Russell Martinez and colleagues, with an educational adilia from [employer]. 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 She reports no current symptoms and continues to follow care recommendations. At 6 weeks gestation, she experienced a single episode of vaginal bleeding, resolved without recurrence. No contractions, LOF, VB, or cramping. movement is appropriate. Bedside ultrasound shows active fetus with identifiable anatomy and FHR of 154 bpm. Labs show rubella non-immunity, trace ketonuria, and all other infectious screenings negative. Maternal serum screen negative; fetus is female. Plan: Follow up with [facility] for 2nd trimester anatomy ultrasound (patient to expect scheduling call within 1?2 weeks) Review and provide lab and genetic testi ng results, including gender Encourage hydration and small, frequent meals to address ketonuria Routine counseling and monitori ng for signs of labor or complications Follow up at next scheduled visit Ansley Gore, 29 y/o G1P 0 at 17w1d ([place] 03/17/2025, LMP 06/10/2024), presents for routine care. She reports no current symptoms and continues to follow care recommendations. At 6 weeks gestation, she experienced a single episode of vaginal bleeding, resolved without recurrence. No contractions, LOF, VB, or cramping. movement is appropriate. Bedside ultrasound shows active fetus with identifiable anatomy and FHR of 154 bpm. Labs show rubella non-immunity, trace ketonuria, and all other infectious screenings negative. Maternal serum screen negative; fetus is female. Plan: Follow up with [facility] for 2nd trimester anatomy ultrasound (patient to expect scheduling call within 1?2 weeks) Review and provide lab and genetic testi ng results, including gender Encourage hydration and small, frequent meals to address ketonuria Routine counseling and monitori ng for signs of labor or complications Follow up at next scheduled visit - Date: 10/02/2024 - Hepatitis B: Negative - Hepatitis C: Negative - VDRL (Syphilis): Non-reactive - Rubella: Non-immune - Blood Group: O positive - Antibody Screen: Negative - Gonorrhea: Negative - Chlamydia: Negative - CBC: - Hemoglobin: 12.7 g/dL - Hematocrit: 39.4% - Platelet count: 322 - Urinalysis: - Ketones: 1+ - Other parameters: Within normal [facility] - Maternity Genome Test: Negative for all tested aneuploidies - sex: Female 11/05/24 -?-?-?-?-?-?-?-?-?-?-?-?- 21w 1d 104.893 kg 126/80 at 21w1d, presents for routine care. VERNON 03/20/25. Reports good movement. Had intermittent headaches one week ago, now resolved. Denies contractions, LOF, VB, nausea, or vomiting. FHT 160 bpm. Plan: Glucose tolerance test ordered wit h fasting instructions. Next visit at 24 weeks. Tylenol PRN for headache. Follow-up on [facility] referral. Routine counseling provided. 12/03/24 -?-?-?-?-?-?-?-?-?-?-?-?- 25w 1d 106.708 kg 137/89 24 150 active No CTX/LOF/VB, reports ?FM. FHR 150. Glucose screen 118 Reviewed safe OTC options for URI (Benadryl or Robitussin; avoid Sudafed). FU in 4 wks, review sono, labs at 28 & 34wks. [facility] visit 12/2612/31/24 -?-?-?-?-?-?-?-?-?-?-?-?- 29w 1d 108.182 kg 123/80 absent unknown 29 active No contractions, LOF, VB and reports good FM. Denies PICHARDO, VC, and epigastric pain. Return with labs in 2 weeks. PTL precautions 01/14/25 -?-?-?-?-?-?-?-?-?-?-?-?- 31w 1d 108.635 kg 123/85 absent cephalic 31 14 2 active - Patient reports: - Baby is active - No contractions - Patient has a history of asthma - Next ultrasound scheduled for February 07 (around 35-36 weeks g estation) - Follow-up appointment scheduled in 2 weeks - Subsequent appointments to be schedule d weekly after next visit (at 35 weeks) - Continue vitamins - Monitor for labor symptoms: contractio ns more frequent than every 5 minutes, leaking fluid, bleeding, decreased movement - Next growth ultrasound scheduled for roseanne (35-36 weeks gestation) - Patient provided with copy of lab resu lts 02/07/25 -?-?-?-?-?-?-?-?-?-?-?-?- 34w 4d 109.769 kg 135/82 occasional cephalic 34 active No contractions, LOF, VB and reports good FM. Denies PICHARDO, VC, and epigastric pain. - Patient reports overall good health wi th some fatigue. - She notes the baby is starting to caus e discomfort: - Baby tends to lay on one side more - Patient experiences increased pain d ue to this positioning - Patient is still working. - Patient is considering options and inquired about W IC program. Plan - M ultrasound scheduled for today at 1:30 PM at 35 weeks gestation - Follow-up appointment in 2 weeks - Subsequent appointments to be weekly - After delivery, patient to obtain WIC form for women from [place] office - Provider to complete WIC form with [facility] data (length, height, weight) after delivery 02/24/25 -?-?-?-?-?-?-?-?-?-?-?-?- 37w 0d 109.826 kg 121/84 absent cephalic 37 14 5 active No contractions, LOF, VB and reports good FM. Denies PICHARDO, VC, and epigastric pain. - Patient reports experiencing an unusua l pain yesterday: - Location: Upper abdomen where the ba by likes to hang out - Timing: Occurred when going to bed - Duration: Not specified, but patient fell asleep afterwards - Character: Described as weird and unlike anything felt before - Denies current contractions or other i ssues - Patient has been conducting research on and labor - Perform Group B Streptococcus (GBS) screening - Schedule 39-week appointment for membr ane sweeping - Continue monitoring for signs of labor , instructing patient to time contractions if they occur every 5-7 minutes - Recommend close monitoring of blood pr essure - Consider anesthesia consultation due t o maternal obesity 03/05/25 -?-?-?-?-?-?-?-?-?-?-?-?- 38w 2d 111.357 kg 130/84 occasional cephalic 39 170 active - She reports the baby is active with no contractions, leaking, or bleeding. - She describes increased movement , particularly when she wants to go to bed, stating when I want to go to bed, she starts wanting to move around. - She reports walking slowly at the gym for exercise. 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 - She denies any concerning symptoms and states we're good right n ow. - Schedule membrane sweep next week - Continue exercise, including walking a t the gym and using exercise ball 3 times daily - Complete disability paperwork with sta rt date of 03/01 - [place] at hospital for updated insur ance information - Follow up appointment in one week 03/13/25 -?-?-?-?-?-?-?-?-?-?-?-?- 39w 3d 112.548 kg 139/90 occasional cephalic 40 155 active - She denies contractions at this time. 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 - She inquires about how far past her due date she can go safely. - Schedule induction date for 41 weeks gestation if not in labor by then - Patient to monitor for contractions, t iming them when occurring every 5 minutes - Patient to go to Labor and Delivery (4 th floor) if water breaks, bleeding occurs, or contractions are 5 minutes apart - Follow up appointment scheduled for on e week VERNON Calculator Estimated Delivery Date Method Current WG Current Estimate 03/17/25 LMP (Certain) 41w 0d Other Estimates 03/14/25 Ultrasound #1 41w 3d Notes Visit Date: 02/24/25 Last Updated by: Salo Weeks MD - Maternal ultrasound (02/07/2025): - Estimated weight: 2733 grams (77th percentile at 34 weeks and 4 days) - ARIK: Normal Visit Date: 01/14/25 Last Updated by: Salo Weeks MD - CBC: Hemoglobin 13 g/dL - RTR (Rapid Test for Rubella): Non-reactive - Atpia: Negative - Infection screening: Negative Office Procedures OBC Clinic LOC & Office Proc's Nursing/Assessment Patient Status: Established Patient OB Clinic Nursing Assessment: Medication Reconciliation, Update PMH in EMR and Vital Signs OB Clinic Coordination of Care: Education Complex Pt/Fam, Consent,records obtained, informed consent, Lab and Imaging orders, Results/Orders obtained and Staff clarify orders Special Needs: Heart tones Established Patient Charge Established Patient Point Assignment: 115 Established Patient Point Charge: EP Level 3 (80-115) Assessment & Plan Diagnosis / Problem List (1) Supervision of high risk , unspecified, third trimester: Status: Acute Plan Problem List - , 39 weeks and 3 days Assessment at 39 weeks and 3 days gestation presenting for routine visit. Patient reports no contractions or other concerning symptoms. heart rate auscultated at 139-140 bpm, which is within normal range. Patient is approaching her due date and inquiring about post-term management. Plan - Schedule induction date for 41 weeks gestation if not in labor by then - Patient to monitor for contractions, timing them when occurring every 5 minutes - Patient to go to Labor and Delivery (4th floor) if water breaks, bleeding occurs, or contractions are 5 minutes apart - Follow up appointment scheduled for one week 1. Progress Reviewed gestational age (39 weeks and 3 days), growth, and heart rate (139-140 bpm, normal). Planned frequent visits (every 2 weeks until 36 weeks, then weekly). 2. Instructed patient to monitor movements and report decreases immediately. 3. Testing Counseled on routine third-trimester labs per guidelines. Discussed potential need for ultrasound or monitoring based on risk factors. 4. Preeclampsia Precaution Educated on preeclampsia signs: severe headache, vision changes, right upper quadrant pain, sudden swelling. Advised urgent reporting of symptoms and discussed blood pressure monitoring if high risk. 5. Labor Precautions Reviewed labor signs: regular contractions (timing contractions every 5 minutes as indication to come in), pelvic pressure, back pain, bleeding, or fluid leakage (water breaking). Instructed to seek immediate care for these symptoms (go directly to labor and delivery on 4th floor, not ER). 6. Lifestyle and Delivery Preparation Reinforced vitamins, nutrition, and safe activity. Discussed plan, pain management, and . Advised on labor preparation (e.g., hospital bag) and expectations. Scheduled induction date at 41 weeks as backup plan. 7. Psychosocial Support Assessed emotional well-being and offered resources for mental health or parenting support.
== END 2025-03-13 15:04 | disposition home or self-care (01) ==
LOC: HODSOBC 14:24
PROVIDERS: Supervising Provider Obstetrics & Gynecology; Visit Provider Obstetrics & Gynecology
DX: O09.93 Supervision of high risk pregnancy, unspecified, third trimester (principal); Z3A.39 39 weeks gestation of pregnancy
CPT/HCPCS: 99213; G0463

== ENCOUNTER 2025-03-20 13:26 | Outpatient (AMB) | payer BC, MEDICAID, SELFPAY ==
[2025-03-20 13:51] VITALS: BP 128/88; PULSE 84; RESP 14; TEMP 36.5; O2SAT 98; BMI 42.7
--- NOTE | 2025-03-20 13:51 | OBCLNT_ITS ---
Vital Signs 03/20/25 13:51 Height 1.63 m Height Method Stated Weight 113.398 kg Weight Measurement Method Standing Scale BMI 42.7 BP 128/88 H Blood Pressure Source Automatic Cuff Blood Pressure Location Left Upper Arm Position Sitting Respiration 14 Pulse 84 Pulse Source Monitor Temp 97.7 F Temp Source Oral Pulse Oximetry (%) 98 Oxygen Delivery Method Room Air Allergies/Home Meds Allergies & Medications Allergies NKA* Allergy (Uncoded 03/20/25 13:52) Medication Reconciliation ferrous sulfate 325 mg (65 mg iron) tablet 325 mg PO QDAY 90 days #90 tabs 09/10/24 [Rx Confirmed 03/20/25] folic acid 1 mg tablet 1 mg PO QDAY 90 days #90 tabs 09/10/24 [Rx Confirmed 03/20/25] Intake Visit Data Collection New Patient or Established: Established Patient (seen at [facility] within 3 years) Reason for Visit:: CARE Seen by Clinical Staff ONLY (RN/MA): No Field Sales Agent Required: No Do You Feel Safe at Home: Yes Authorities Contacted: N/A PCP or OBGYN visit in last 3 months: Yes Hx Now: Yes Are you currently on any form of Control: No Pain Present Currently: No Pain Scale Used: Galarza-Reyna/Numerical Pain scale:: 0 Smoking Status Smoking Status: Never smoker Questionnaires Covid-19 Vaccine Questionnaire Has patient been vacinated for Covid-19 Have you been vacinated for Covid-19: Yes PHQ-9 PHQ-2 Over the last 2 weeks, how often have you been bothered by any of the following problems? 1. Little interest or pleasure in doing things: not at all 2. Feeling down, depressed, or hopeless: not at all Total score: 0 PHQ-9 3. Trouble falling or staying asleep, or sleeping too much: Not at all 4. Feeling tired or having little energy: Not at all 5. Poor appetite or overeating: Not at all 6. Feeling bad about yourself - or that you are a failure or have let yourself or your family down: Not at all 7. Trouble concentrating on things, such as reading the newspaper or watching television: Not at all 8. Moving or speaking so slowly that other people could have noticed? - Or the opposite - being so fidgety or restless that you have been moving around a lot more than usual: not at all 9. Thoughts that you would be better off or of hurting yourself in some way: Not at all Total score: 0 Source: Developed by Drs. Nicolas Gregorio, Laura Lynch, Russell Martinez and colleagues, with an educational adilia from [employer]. Depression screen completed yes Social History Living Situation History Lives With: Family Housing: House Tobacco History Smoking Status: Never smoker Second Hand Smoke Exposure: No Alcohol History Alcohol Intake: Never Substance Use History Substance Use: NONE Domestic Abuse History Do You Feel Safe at Home: Yes COAL CAGER: Past Medical History Past Medical History: No Hx Breast Cancer, No Hx Anemia, No Hx Renal Disease, No Hx Diabetes Mellitus Type 1 and No Hx Diabetes Mellitus Type 2 Care OB Visit Log OB Flowsheet Initial Weight: Not Recorded Date -?-?-?-?-?-?-?-?-?-?-?-?- EGA Weight BP Alb Glu CTX Pres Fundal ht FHR Mov Dilation Station Effa cement Hx Notes Visit Note 10/08/24 -?-?-?-?-?-?-?-?-?-?-?-?- 17w 1d 102.625 kg 136/86 Ansley Gore, 29 y/o at 17w1d (VERNON 03/17/2025, LMP 06/10/2024), presents for routine care. She reports no current symptoms and continues to follow care recommendations. At 6 weeks gestation, she experienced a single episode of vaginal bleeding, resolved without recurrence. No contractions, LOF, VB, or cramping. movement is appropriate. Bedside ultrasound shows active fetus with identifiable anatomy and FHR of 154 bpm. Labs show rubella non-immunity, trace ketonuria, and all other infectious screenings negative. Maternal serum screen negative; fetus is female. Plan: Follow up with [facility] for 2nd trimester anatomy ultrasound (patient to expect scheduling call within 1?2 weeks) Review and provide lab and genetic testi ng results, including gender Encourage hydration and small, frequent meals to address ketonuria Routine counseling and monitori ng for signs of labor or complications Follow up at next scheduled visit Ansley Gore, 29 y/o G1P 0 at 17w1d (VERNON 03/17/2025, LMP 06/10/2024), presents for routine care. She reports no current symptoms and continues to follow care recommendations. At 6 weeks gestation, she experienced a single episode of vaginal bleeding, resolved without recurrence. No contractions, LOF, VB, or cramping. movement is appropriate. Bedside ultra sound shows active fetus with identifiable anatomy and FHR of 154 bpm. Labs show rubella non-immunity, trace ketonuria, and all other infectious screenings negative. Maternal serum screen negative; fetus is female. Plan: Follow up with [facility] for 2nd trimester anatomy ultrasound (patient to expect scheduling call within 1?2 weeks) Review and provide lab and genetic testi ng results, including gender Encourage hydration and small, frequent meals to address ketonuria Routine counseling and monitori ng for signs of labor or complications Follow up at next scheduled visit - Date: 10/02/2024 - Hepatitis B: Negative - Hepatitis C: Negative - VDRL (Syphilis): Non-reactive - Rubella: Non-immune - Blood Group: O positive - Antibody Screen: Negative - Gonorrhea: Negative - Chlamydia: Negative - CBC: - Hemoglobin: 12.7 g/dL - Hematocrit: 39.4% - Platelet count: 322 - Urinalysis: - Ketones: 1+ - Other parameters: Within normal [facility] - Maternity Genome Test: Negative for all tested aneuploidies - sex: Female 11/05/24 -?-?-?-?-?-?-?-?-?-?-?-?- 21w 1d 104.893 kg 126/80 at 21w1d, presents for routine care. VERNON 03/20/25. Reports good movement. Had intermittent headaches one week ago, now resolved. Denies contractions, LOF, VB, nausea, or vomiting. FHT 160 bpm. Plan: Glucose tolerance test ordered wit h fasting instructions. Next visit at 24 weeks. Tylenol PRN for headache. Follow-up on [facility] US referral. Routine counseling provided. 12/03/24 -?-?-?-?-?-?-?-?-?-?-?-?- 25w 1d 106.708 kg 137/89 24 150 active No CTX/LOF/VB, reports ?FM. FHR 150. Glucose screen 118 Reviewed safe OTC options for URI (Benadryl or Robitussin; avoid Sudafed). FU in 4 wks, review sono, labs at [address] [facility] visit 12/2612/31/24 -?-?-?-?-?-?-?-?-?-?-?-?- 29w 1d 108.182 kg 123/80 absent unknown 29 active No contractions, LOF, VB and reports good FM. Denies PICHARDO, VC, and epigastric pain. Return with labs in 2 weeks. PTL precautions 01/14/25 -?-?-?-?-?-?-?-?-?-?-?-?- 31w 1d 108.635 kg 123/85 absent cephalic 31 14 2 active - Patient reports: - Baby is active - No contractions - Patient has a history of asthma - Next ultrasound scheduled for February 07 (around 35-36 weeks g estation) - Follow-up appointment scheduled in 2 weeks - Subsequent appointments to be schedule d weekly after next visit (at 35 weeks) - Continue vitamins - Monitor for labor symptoms: contractio ns more frequent than every 5 minutes, leaking fluid, bleeding, decreased movement - Next growth ultrasound scheduled for (35-36 weeks gestation) - Patient provided with copy of lab resu lts 02/07/25 -?-?-?-?-?-?-?-?-?-?-?-?- 34w 4d 109.769 kg 135/82 occasional cephalic 34 active No contractions, LOF, VB and reports good FM. Denies PICHARDO, VC, and epigastric pain. - Patient reports overall good health wi th some fatigue. - She notes the baby is starting to caus e discomfort: - Baby tends to lay on one side more - Patient experiences increased pain d ue to this positioning - Patient is still working. - Patient is considering options and inquired about W IC program. Plan - M ultrasound scheduled for today at 1:30 PM at 35 weeks gestation - Follow-up appointment in 2 weeks - Subsequent appointments to be weekly - After delivery, patient to obtain WIC form for women from [place] office - Provider to complete WIC form with [facility] th data (length, height, weight) after delivery 02/24/25 -?-?-?-?-?-?-?-?-?-?-?-?- 37w 0d 109.826 kg 121/84 absent cephalic 37 14 5 active No contractions, LOF, VB and reports good FM. Denies PICHARDO, VC, and epigastric pain. - Patient reports experiencing an unusua l pain yesterday: - Location: Upper abdomen where the ba by likes to hang out - Timing: Occurred when going to bed - Duration: Not specified, but patient fell asleep afterwards - Character: Described as weird and unlike anything felt before - Denies current contractions or other i ssues - Patient has been conducting research on and labor - Perform Group B Streptococcus (GBS) screening - Schedule 39-week appointment for membr ane sweeping - Continue monitoring for signs of labor , instructing patient to time contractions if they occur every 5-7 minutes - Recommend close monitoring of blood pr essure - Consider anesthesia consultation due t o maternal obesity 03/05/25 -?-?-?-?-?-?-?-?-?-?-?-?- 38w 2d 111.357 kg 130/84 occasional cephalic 39 170 active - She reports the baby is active with no contractions, leaking, or bleeding. - She describes increased movement , particularly when she wants to go to bed, stating when I want to go to bed, she starts wanting to move around. - She reports walking slowly at the gym for exercise. 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 - She denies any concerning symptoms and states we're good right n ow. - Schedule membrane sweep next week - Continue exercise, including walking a t the gym and using exercise ball 3 times daily - Complete disability paperwork with sta rt date of 03/01 - [place] [facility] for updated insur ance information - Follow up appointment in one week 03/13/25 -?-?-?-?-?-?--?-?-?-?-?-?- 39w 3d 112.548 kg 139/90 occasional cephalic 40 155 active - She denies contractions at this time. 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 - She inquires about how far past her due date she can go safely. - Schedule induction date for 41 weeks gestation if not in labor by then - Patient to monitor for contractions, t iming them when occurring every 5 minutes - Patient to go to Labor and Delivery (4 th floor) if water breaks, bleeding occurs, or contractions are 5 minutes apart - Follow up appointment scheduled for on e week 03/20/25 -?-?-?-?-?-?-?-?-?-?-?-?- 40w 3d 113.398 kg 128/88 occasional cephalic 42 145 active 1 -4 0 No con tractions, LOF, VB and reports good FM. Denies PICHARDO, VC, and epigastric pain. IOL scheduled for Monday. Labor signs VERNON Calculator Estimated Delivery Date Method Current WG Current Estimate 03/17/25 LMP (Certain) 41w 0d Other Estimates 03/14/25 Ultrasound #1 41w 3d Notes Visit Date: 02/24/25 Last Updated by: Salo Weeks MD - Maternal ultrasound (02/07/2025): - Estimated weight: 2733 grams (77th percentile at 34 weeks and 4 days) - ARIK: Normal Visit Date: 01/14/25 Last Updated by: Salo Weeks MD - CBC: Hemoglobin 13 g/dL - RTR (Rapid Test for Rubella): Non-reactive - Atpia: Negative - Infection screening: Negative Office Procedures OBC Clinic LOC & Office Proc's Nursing/Assessment Patient Status: Established Patient OB Clinic Nursing Assessment: Medication Reconciliation, Update PMH in EMR and Vital Signs OB Clinic Coordination of Care: Complex Care and Chronic Disease 1-5, Consent, records obtained, informed consent, Education Simp Pt/Fam, 1 Ins Authorization, Lab and Imaging orders, Results/Orders obtained and Staff clarify orders Special Needs: Heart tones Miscellaneous Interventions: Pelvic no cultures Established Patient Charge Established Patient Point Assignment: 160 Established Patient Point Charge: EP Level 5 (160-above) Assessment & Plan Diagnosis / Problem List (1) Supervision of high risk , unspecified, third trimester: Status: Acute
== END 2025-03-20 14:04 | disposition home or self-care (01) ==
LOC: HODSOBC 13:26
PROVIDERS: Supervising Provider Obstetrics & Gynecology; Visit Provider Obstetrics & Gynecology
DX: O09.893 Supervision of other high risk pregnancies, third trimester (principal); O48.0 Post-term pregnancy; Z3A.40 40 weeks gestation of pregnancy
CPT/HCPCS: 99215; G0463

== ENCOUNTER 2025-03-24 19:08 | Inpatient (IN) | payer BC, MEDICAID, SELFPAY ==
[2025-03-24] VITALS (11 sets, daily range): BP systolic 104–142; BP diastolic 58–99; PULSE 77–92; RESP 17–99; TEMP 36.8–36.9; BMI 45.1
--- NOTE | 2025-03-24 18:10 | XR_ITS ---
Examination: Complete OB ultrasound greater than 14 weeks Date and time of exam: March 24, 2025, 1820 hours INDICATIONS: Post dates, labor evaluation Findings: Viable intrauterine single fetus with single amniotic sac presentation cephalic Cardiac motion 155 bpm Placenta fundal grade 3 Umbilical cord insertion 3 vessels seen Amniotic fluid index 11 cm spine maternal right Ovaries obscured by bowel gas. Composite estimated gestational age based on BPD, head circumference, abdominal circumference, femur length is 41 weeks 2 days Estimated weight 4513 g. Survey of intracranial anatomy, spinal anatomy, abdominal anatomy, four-chamber heart performed with no abnormalities identified. Impression: Viable intrauterine gestation in cephalic presentation.
[2025-03-24] MEDS: RINGERS LACTATED 1000 ML 1,000 ML 100 ML IV (18:48)
[2025-03-24 19:40] LABS: Collection Type, Urine Clean Catch
[2025-03-24 19:44] LABS: Basophils # (Auto) 0.1 Thou/mm3 (0.0-0.2); Basophils % (Auto) 0 % (0-2.5); Eosinophils # (Auto) 0.2 Thou/mm3 (0.0-0.5); Eosinophils % (Auto) 2 % (0-10); Hematocrit 38.4 % (36.0-46.0); Hemoglobin 12.8 g/dL (12.0-16.0); Immature Granulocytes Auto 0.06 Thou/mm3 (0.00-0.00); Lymphocytes # (Auto) 2.3 Thou/mm3 (1.0-4.8); Lymphocytes % (Auto) 18 % (10-50); Mean Corpuscular HGB Conc 33.3 g/dl (31.0-37.0); Mean Corpuscular Hemoglobin 26.6 pg (25.0-35.0); Mean Corpuscular Volume 80 fL (80-100); Monocytes # (Auto) 1.0 Thou/mm3 (0.0-0.8); Monocytes % (Auto) 8 % (0-12); Neutrophils # (Auto) 9.3 Thou/mm3 (1.8-7.7); Neutrophils % (Auto) 72 % (37-80); Nucleated Red Blood Cell # 0.00 Thou/mm3 (0.00-0.00); Nucleated Red Blood Cell % 0 /100 WBC (0); Platelet Count 360 Thou/mm3 (140-440); RDW Standard Deviation 42.1 fL (36.4-46.3); Red Blood Count 4.81 Miln/mm3 (4.00-5.20); White Blood Count 13.0 Thou/mm3 (3.6-11.0)
[2025-03-24 19:49] LABS: Bilirubin,Urine Negative (Negative); Blood,Urine Negative (Negative); Clarity,Urine Clear (Clear/Hazy); Color,Urine Yellow (Lt Yel-Yel); Glucose, Urine Negative (Negative); Ketones,Urine Negative (Negative); Leukocyte Esterase,Urine Negative (Negative); Nitrite,Urine Negative (Negative); PH,Urine 6.5 (5.0-7.0); Protein,Urine Trace (Neg - Trace); RBC,Urine 2 /hpf (0-3); Specific Gravity,Urine 1.026 (1.001-1.035); Squamous Epithelial Cell,Urine 11 /hpf (0-5); Urobilinogen,Urine 2.0 mg/dL (0.0-1.0); WBC,Urine 2 /hpf (0-5)
[2025-03-24 19:56] LABS: Creatinine,Random Urine 157 mg/dL (30-125); Protein Total, Random Urine 28 mg/dL (1-14)
[2025-03-24 20:02] LABS: Alanine Aminotransferase 11 U/L (10-49); Albumin, Serum 4.2 gm/dL (3.5-5.0); Albumin/Globulin Ratio 1.4 (1.2-2.2); Alkaline Phosphatase 207 U/L (46-116); Anion Gap 12 (7-16); Aspartate Amino Transferase 17 U/L (0-34); BUN/Creatinine Ratio 10 Ratio (12-20); Bilirubin,Total 0.4 mg/dL (0.3-1.2); Blood Urea Nitrogen < 5 mg/dL (9-23); Calcium 8.9 mg/dL (8.3-10.6); Calcium (Corrected) 8.9 mg/dL (8.5-10.1); Carbon Dioxide 20.9 mMol/L (20.0-31.0); Chloride 106 mMol/L (98-107); Creatinine (Component) 0.5 mg/dL (0.6-1.3); Estimated Creatinine Clearance 203.7 mL/min (>60); Globulin 3.0 gm/dL (2.3-3.5); Glucose 87 mg/dL (74-106); Osmolality,Calculated 273 (275-295); Potassium 3.8 mMol/L (3.4-5.1); Sodium 139 mMol/L (136-145); Total Protein 7.2 gm/dL (5.7-8.2); Uric Acid 4.0 mg/dL (3.1-7.8); eGFR > 60 See Note
[2025-03-24 20:07] LABS: Fibrinogen 592 mg/dL (175-375); INR 0.9 (0.9-1.3); Partial Thromboplastin Time 25.1 Seconds (22.0-36.0); Prothrombin Time 9.7 Seconds (9.0-12.2)
[2025-03-24 21:17] LABS: Syphilis Nonreactive (Nonreactive)
[2025-03-25] VITALS (20 sets, daily range): BP systolic 98–141; BP diastolic 59–101; PULSE 70–95; RESP 16; TEMP 36.6–37
--- NOTE | 2025-03-25 00:42 | ESHP_ITS ---
Documentation for date of: 03/24/25 OB Labor/Induct. HPI History of Present Illness Chief complaint: Induction of labor : 1 Para: 0 Term pregnancies: 0 pregnancies: 0 Living children: 0 History of Abortions: Spontaneous and Elective: 0 History of Vaginal deliveries: 0 History of sections: No History of : No Date of last menstrual period: 06/10/24 VERNON: 03/17/25 Gestational age based on last menstrual period: 41 History of present illness: Helen Natarajan is a 29-year-old G1, P0 at 41 weeks who is presenting for her induction of labor patient received care at the [facility]. Her has been uncomplicated without any major medical complications. She was scheduled for induction at 40 weeks plus but has been delayed due to a backup on labor and delivery. On presentation patient had mild range elevated blood pressures. She denied any headache or epigastric pain or any other signs of preeclampsia. Patient reported intermittent contractions, reported adequate movements and denied any leakage of fluid or vaginal bleeding. All her records were scanned in and they were reviewed History of Present Adequate Care: Yes Obstetrical complications: none Labs Maternal Blood Type: O Pos Labs: Negative: RPR, Hepatitis B, Rubella Titre, HIV, Chlamydia, Gonorrhea and Group Beta Strep and Unknown: Herpes Type 1 and Herpes Type 2 Past Medical History Surgical History SURGICAL: Negative Section Meds Home Medications and Allergies Allergies Allergy/AdvReac Type Severity Reaction Status Date / Time NKA* Allergy Uncoded 03/20/25 13:52 OB Exam Physical Exam Vital signs: Temp Pulse Resp BP 98.4 F 86 18 117/70 03/24/25 19:06 03/24/25 23:29 03/24/25 19:06 03/24/25 23:29 Constitutional Constitutional: no acute distress Routine HEENT Exam Head: Present normocephalic and atraumatic Eye: Present EOMI and PERRL ENT: Present mucous membranes moist Routine Neck Exam Neck: Present supple and trachea midline Routine Cardiovascular Exam Cardiovascular: Present RRR Routine Abdominal Exam Abdominal: Present soft and normoactive bowel sounds Detailed Labor and Delivery Exam Dilation (cm): 1 Effacement (%): 50 Cervix position: posterior station: -4 Consistency: firm Presentation: Vertex Membranes: intact Baseline heart rate: 140 monitor accelerations: 15x15 monitor decelerations: None Routine Extremities Exam Extremities: Present full ROM Routine Skin Exam Skin: Present intact, dry and warm Routine Neurological Exam Neurological: Present alert, oriented X3 and CN II-XII intact Routine Psychiatric Exam Psychiatric: Present normal affect and normal thought process OB Results Labs 03/24/25 18:35 03/24/25 18:35 Labs: Short CBC 03/24/25 Range/Units 18:35 WBC 13.0 H (3.6-11.0) Thou/mm3 Hgb 12.8 (12.0-16.0) g/dL Hct 38.4 (36.0-46.0) % Plt Count 360 (140-440) Thou/mm3 BMP 03/24/25 18:35 Sodium 139 Potassium 3.8 Chloride 106 Carbon Dioxide 20.9 BUN < 5 L Creatinine 0.5 L Glucose 87 Calcium 8.9 Liver Function 03/24/25 Range/Units 18:35 Total Bilirubin 0.4 (0.3-1.2) mg/dL AST 17 (0-34) U/L ALT 11 (10-49) U/L Alkaline Phosphatase 207 H (46-116) U/L Albumin 4.2 (3.5-5.0) gm/dL Urine 03/24/25 Range/Units 18:25 Urine Color Yellow (Lt Yel-Yel) Urine Clarity Clear (Clear/Hazy) Urine pH 6.5 (5.0-7.0) Ur Specific [place] 1.026 (1.001-1.035) Urine Protein Trace (Neg - Trace) Urine Glucose (UA) Negative (Negative) OB Assessment & Plan Assessment and Plan (1) Supervision of high risk , unspecified, third trimester: Status: Acute Assessment and plan: Admit to inpatient status IV access, LR at 125 cc/h Labs to include CBC type and screen RPR GBS negative Epidural whenever desired Continuous maternal monitoring Start cervical ripening with Cervidil, further management depending on Koch score and progress of labor
--- NOTE | 2025-03-25 12:56 | PD.LDANTPROG ---
Subjective Subjective Interval history: Patient doing well this morning. She completed 12 hours of dinoprostone/Cervidil No cervical change. Exam Vital Signs Temp Pulse Resp BP 98.1 F 73 16 108/61 03/25/25 07:10 03/25/25 12:12 03/25/25 07:10 03/25/25 12:12 Narrative Exam Cervix 1/50 and/ high posterior Category 1 heart rate tracing Urinary Catheter Management Cath placed during this visit: no Assessment & Plan Problems (1) Supervision of high risk , unspecified, third trimester: Status: Acute Assessment and plan: Will proceed to further cervical ripening using misoprostol Continue maternal monitoring Time Spent With Patient Time with patient: less than 15 minutes Objective Labs 03/24/25 18:35 03/24/25 18:35 Labs: Laboratory Results - last 24 hr 03/24/25 03/24/25 18:25 18:35 WBC 13.0 H RBC 4.81 Hgb 12.8 Hct 38.4 MCV 80 MCH 26.6 MCHC 33.3 RDW Std Deviation 42.1 Plt Count 360 Neut % (Auto) 72 Lymph % (Auto) 18 [place] % (Auto) 8 Eos % (Auto) 2 Baso % (Auto) 0 Neut # (Auto) 9.3 H Lymph # (Auto) 2.3 [place] # (Auto) 1.0 H Eos # (Auto) 0.2 Baso # (Auto) 0.1 Immature Gran # (Auto) 0.06 H Absolute Nucleated RBC 0.00 Immature Gran % 1 H Nucleated RBC % 0 PT 9.7 INR 0.9 APTT 25.1 Fibrinogen 592 H Sodium 139 Potassium 3.8 Chloride 106 Carbon Dioxide 20.9 Anion Gap 12 BUN < 5 L Creatinine 0.5 L Estim Creat Clear Calc 203.7 eGFR > 60 BUN/Creatinine Ratio 10 L Glucose 87 Calculated Osmolality 273 L Uric Acid 4.0 Calcium 8.9 Corrected Calcium 8.9 Total Bilirubin 0.4 AST 17 ALT 11 Alkaline Phosphatase 207 H Total Protein 7.2 Albumin 4.2 Globulin 3.0 Albumin/Globulin Ratio 1.4 Ur Collection Type Clean Catch Urine Color Yellow Urine Clarity Clear Urine pH 6.5 Ur Specific [place] 1.026 Urine Protein Trace Urine Glucose (UA) Negative Urine Ketones Negative Urine Blood Negative Urine Nitrite Negative Urine Bilirubin Negative Urine Urobilinogen (Auto) 2.0 Ur Leukocyte Esterase Negative Urine RBC 2 Urine WBC 2 Ur Squamous Epith Cells 11 H Urine Bacteria None Ur Random Creatinine 157 H U Random Total Protein 28 H Syphilis Serology Nonreactive Blood Type O Positive Antibody Screen NEGATIVE Blood Bank Wristband ID Yes
[2025-03-25] MEDS: RINGERS LACTATED 1000 ML 1,000 ML 100 ML IV (13:15)
[2025-03-26] VITALS (214 sets, daily range): BP systolic 92–180; BP diastolic 55–106; PULSE 70–104; RESP 16–19; TEMP 36.4–37.8; O2SAT 91–100
[2025-03-26] MEDS: RINGERS LACTATED 1000 ML 1,000 ML 100 ML IV ×2 (08:00→09:37)
[2025-03-26] MEDS: OXYTOCIN in NS 30 units 30 UNIT/500 ML BAG IV (11:14)
--- NOTE | 2025-03-26 12:33 | PD.LDPN ---
Documentation for date of: 03/26/25 OB Labor Progress Note Pain Control Pain control: tolerating well and epidural Pelvic Exam Dilation (cm): 4 Effacement (%): 60 station: -3 Amniotic membrane status: Bulging Comments: as station is high will wait to AROM Contractions Monitor mode: External Contraction frequency: 1-6 Contraction intensity: Mild Status status: Category ll Comments: varies between cat 1 and cat 2 Assessment and Plan Assessment: induction ongoing Plan OB labor note: continuous present management Comments: EFW by US is 4.5 kg / patient does not have dM discussed risks with large baby and also chances of shoulder dystocia / she wishes to try for vaginal delivery History of Present Illness HPI Patient doing well this morning. She completed 12 hours of dinoprostone/Cervidil No cervical change./ she just received epidural and station is still -3/ 4 cm now / Patient still wanting to try for vaginal delivery
[2025-03-26] MEDS: RINGERS LACTATED 1000 ML 1,000 ML 125 ML IV (15:30)
[2025-03-26] MEDS: ACETAMINOPHEN IVPB 1,000 MG/100 ML VIAL 250 MG IV (18:43)
[2025-03-26 19:02] LABS: Basophils # (Auto) 0.1 Thou/mm3 (0.0-0.2); Basophils % (Auto) 0 % (0-2.5); Eosinophils # (Auto) 0.0 Thou/mm3 (0.0-0.5); Eosinophils % (Auto) 0 % (0-10); Hematocrit 37.3 % (36.0-46.0); Hemoglobin 12.3 g/dL (12.0-16.0); Immature Granulocytes Auto 0.10 Thou/mm3 (0.00-0.00); Lymphocytes # (Auto) 1.6 Thou/mm3 (1.0-4.8); Lymphocytes % (Auto) 8 % (10-50); Mean Corpuscular HGB Conc 33.0 g/dl (31.0-37.0); Mean Corpuscular Hemoglobin 26.6 pg (25.0-35.0); Mean Corpuscular Volume 81 fL (80-100); Monocytes # (Auto) 1.4 Thou/mm3 (0.0-0.8); Monocytes % (Auto) 7 % (0-12); Neutrophils # (Auto) 17.3 Thou/mm3 (1.8-7.7); Neutrophils % (Auto) 85 % (37-80); Nucleated Red Blood Cell # 0.00 Thou/mm3 (0.00-0.00); Nucleated Red Blood Cell % 0 /100 WBC (0); Platelet Count 295 Thou/mm3 (140-440); RDW Standard Deviation 42.3 fL (36.4-46.3); Red Blood Count 4.62 Miln/mm3 (4.00-5.20); White Blood Count 20.5 Thou/mm3 (3.6-11.0)
[2025-03-26 19:24] LABS: Alanine Aminotransferase 10 U/L (10-49); Albumin, Serum 3.8 gm/dL (3.5-5.0); Albumin/Globulin Ratio 1.4 (1.2-2.2); Alkaline Phosphatase 197 U/L (46-116); Anion Gap 15 (7-16); Aspartate Amino Transferase 16 U/L (0-34); BUN/Creatinine Ratio 8 Ratio (12-20); Bilirubin,Total 0.8 mg/dL (0.3-1.2); Blood Urea Nitrogen < 5 mg/dL (9-23); Calcium 8.6 mg/dL (8.3-10.6); Calcium (Corrected) 8.8 mg/dL (8.5-10.1); Carbon Dioxide 17.3 mMol/L (20.0-31.0); Chloride 107 mMol/L (98-107); Creatinine (Component) 0.6 mg/dL (0.6-1.3); Estimated Creatinine Clearance 169.7 mL/min (>60); Globulin 2.7 gm/dL (2.3-3.5); Glucose 70 mg/dL (74-106); Osmolality,Calculated 272 (275-295); Potassium 4.1 mMol/L (3.4-5.1); Sodium 139 mMol/L (136-145); Total Protein 6.5 gm/dL (5.7-8.2); eGFR > 60 See Note
--- NOTE | 2025-03-26 20:57 | ESPR_ITS ---
Documentation for date of: 03/26/25 OB Labor Progress Note Pain Control Pain control: epidural Pelvic Exam Dilation (cm): 4 Effacement (%): 80 station: -3 Amniotic membrane status: Ruptured Contractions Monitor mode: Internal Contraction frequency: 4.5-6 Contraction intensity: Moderate Status status: Category ll Assessment and Plan Assessment: induction ongoing Plan OB labor note: (Patient is given risk benefits and options of continuing with trial for vaginal delivery versus a , she opts for a C- section at this time risk of surgery to include risk of injury infection bleeding possible risk of injury to the bowel bladder ureters uterus tubes ovaries and any other pelv) Comments: Patient was given the reason for proceeding with surgery. She was given the risk benefits and options. She chose to proceed with the surgery. Risks of surgery to include risk of infection bleeding, possible injury to the surrounding organs like the urinary bladder, intestines, ureter, uterus, tubes, ovaries, nerves, blood vessels, possible risk of wound dehiscence later on or hernia development later on in future. However the surgery is done when the benefits outweigh the risks Possible risks of blood transfusion and options were also discussed. All questions answered Patient willing to proceed with surgery. CNM Management MD Consulted (describe details below): No History of Present Illness HPI Patient doing well this morning. She completed 12 hours of dinoprostone/Cervidil No cervical change./ she just received epidural and station is still -3/ 4 cm now / Patient still wanting to try for vaginal delivery / Now she has had an AROM and has been same at 4 cm cervical dilation for over 6 hours and wants to have a C section
[2025-03-26] MEDS: FAMOTIDINE INJ 10 MG/ML VIAL 2 ML 20 MG IV (21:00)
[2025-03-26] MEDS: ceFAZolin/D5W 2 GM IV 2 GM/100 ML BAG IV (21:01)
[2025-03-26] MEDS: METOCLOPRAMIDE INJ 5 MG/ML VIAL 2 ML 10 MG IVP (21:01)
[2025-03-26] MEDS: ceFAZolin/D5W 1 GM IVPB 1 GM/50 ML BAG IV (21:16)
--- NOTE | 2025-03-26 22:11 | ESOP_ITS ---
Operative Note - DIRECTOR OF LABOR AND DELIVERY Procedure Date of procedure: 03/26/25 Procedure Performed: Primary low-transverse section at 41.1 weeks Indication: Arrest of dilatation Large for gestational age baby 41.1 weeks G1, P0 Pre-Op diagnosis: See indication Post-Op diagnosis: See preop diagnosis Anesthesia type: Spinal Procedure description: After an informed consent patient was taken to the operating room, she was prepped and draped in the usual sterile fashion after receiving spinal anesthesia. A timeout was done. Surgical site infection prophylaxis was given Marx was in place and draining clear urine SCDs were in place After verification of adequacy of anesthesia, a Pfannansteil incision was made 2 cm above the symphysis pubis and carried laterally on the skin and it was carried down to subcutaneous tissue and then to the rectus fascia, the rectus fascia was from underlying muscles by sharp and blunt dissection Peritoneal cavity was entered atraumatically A Pelayo retractor placed superiorly, and a bladder blade inferiorly Lower uterine segment was well-formed Incision made in the lower uterine segment, and amniotic sac ruptured, clear amniotic fluid Baby was delivered as cephalic and as in ROP position There was some coning of the head Cord clamped and cut and baby received by the waiting nursery team Cord blood collected, placenta removed spontaneously, uterus exteriorized and closed in a wet lap Uterine cavity clean dry of any remaining membranes with a dry lap, uterine incision closed with the help of 0 Monocryl in 2 layers in a running , interlocking fashion . Hemostasis is good Uterus is firm Both tubes and ovaries look normal Uterus is placed back in the peritoneal cavity in the pelvis Instrument needle and sponge count is correct, hemostasis was checked for again on the uterine incision and it is confirmed Peritoneal closure done with 2-0 Vicryl Rectus abdominis muscles approximated with 2-0 Vicryl Rectus fascia approximated with 0 Vicryl running sutures Subcutaneous tissue irrigated closed with and approximated with 3-0 plain catgut Skin approximated with 4-0 Monocryl. Tape dressing applied with Dermabond ABD dressing placed on top Marx is draining clear urine EBL is 550 cc Patient delivered a liveborn male, Apgars are 8 and 9 Specimen: other (Placenta) Estimated blood loss (ml): 550 Findings: see operative note Complications: none Narrative: see procedure Surgical staff Vickie Chand CRNA Diagnosis Problem List Completed Was Problem List Reviewed/Reconciled?: Yes
[2025-03-27] VITALS (8 sets, daily range): BP systolic 108–134; BP diastolic 70–84; PULSE 69–88; RESP 16–18; TEMP 36.4–37.1; O2SAT 97–99
[2025-03-27] MEDS: KETOROLAC INJ 30 MG/ML VIAL IVP (02:18)
[2025-03-27] MEDS: OXYTOCIN in NS 20 units 20 UNIT/1,000 ML BAG 125 UNIT IV (03:55)
[2025-03-27 06:27] LABS: Basophils # (Auto) 0.1 Thou/mm3 (0.0-0.2); Basophils % (Auto) 0 % (0-2.5); Eosinophils # (Auto) 0.1 Thou/mm3 (0.0-0.5); Eosinophils % (Auto) 0 % (0-10); Hematocrit 35.0 % (36.0-46.0); Hemoglobin 11.2 g/dL (12.0-16.0); Immature Granulocytes Auto 0.13 Thou/mm3 (0.00-0.00); Lymphocytes # (Auto) 2.0 Thou/mm3 (1.0-4.8); Lymphocytes % (Auto) 9 % (10-50); Mean Corpuscular HGB Conc 32.0 g/dl (31.0-37.0); Mean Corpuscular Hemoglobin 26.2 pg (25.0-35.0); Mean Corpuscular Volume 82 fL (80-100); Monocytes # (Auto) 1.3 Thou/mm3 (0.0-0.8); Monocytes % (Auto) 6 % (0-12); Neutrophils # (Auto) 17.8 Thou/mm3 (1.8-7.7); Neutrophils % (Auto) 84 % (37-80); Nucleated Red Blood Cell # 0.00 Thou/mm3 (0.00-0.00); Nucleated Red Blood Cell % 0 /100 WBC (0); Platelet Count 286 Thou/mm3 (140-440); RDW Standard Deviation 42.0 fL (36.4-46.3); Red Blood Count 4.28 Miln/mm3 (4.00-5.20); White Blood Count 21.2 Thou/mm3 (3.6-11.0)
--- NOTE | 2025-03-27 07:32 | PC.NURSE ---
03/26/25- RN precepting Nydia Hill RN. Reviewed and agree with labor progress charting.
--- NOTE | 2025-03-27 08:15 | ESPR_ITS ---
Subjective Subjective Interval history: Delivery type: Patient doing well this morning. No acute complaints. Ambulating, tolerating p.o., and voiding without difficulty. HTN/Pre-E screen negative: No CP, SOB, PICHARDO, visual changes, RUQ pain. : Yes Lochia: diminishing Bowel: Flatus + UOP: Adequate Exam Vital Signs Temp Pulse Resp BP Pulse Ox O2 Del Method 98.5 F 81 17 108/70 98 Room Air 03/27/25 05:00 03/27/25 05:00 03/27/25 05:00 03/27/25 05:00 03/27/25 05:00 03/27/25 05:00 Constitutional Constitutional: no acute distress Routine HEENT Exam Head: Present normocephalic and atraumatic Eye: Present EOMI and PERRL ENT: Present mucous membranes moist Routine Neck Exam Neck: Present supple and trachea midline Routine Respiratory Exam Respiratory: Present chest non-tender, lungs clear, normal breath sounds and no resp distress Routine Cardiovascular Exam Cardiovascular: Present RRR Routine Abdominal Exam Abdominal: Present soft and normoactive bowel sounds Routine Extremities Exam Extremities: Present full ROM Routine Skin Exam Skin: Present intact, dry and warm Routine Neurological Exam Neurological: Present alert, oriented X3 and CN II-XII intact Routine Psychiatric Exam Psychiatric: Present normal affect and normal thought process Objective Labs 03/27/25 05:33 03/26/25 18:48 Labs: Laboratory Results - last 24 hr 03/26/25 03/27/25 18:48 05:33 WBC 20.5 H D 21.2 H RBC 4.62 4.28 Hgb 12.3 11.2 L Hct 37.3 35.0 L MCV 81 82 MCH 26.6 26.2 MCHC 33.0 32.0 RDW Std Deviation 42.3 42.0 Plt Count 295 D 286 Neut % (Auto) 85 H 84 H Lymph % (Auto) 8 L 9 L [place] % (Auto) 7 6 Eos % (Auto) 0 0 Baso % (Auto) 0 0 Neut # (Auto) 17.3 H 17.8 H Lymph # (Auto) 1.6 2.0 [place] # (Auto) 1.4 H 1.3 H Eos # (Auto) 0.0 0.1 Baso # (Auto) 0.1 0.1 Immature Gran # (Auto) 0.10 H 0.13 H Absolute Nucleated RBC 0.00 0.00 Immature Gran % 1 H 1 H Nucleated RBC % 0 0 Sodium 139 Potassium 4.1 Chloride 107 Carbon Dioxide 17.3 L Anion Gap 15 BUN < 5 L Creatinine 0.6 Estim Creat Clear Calc 169.7 eGFR > 60 BUN/Creatinine Ratio 8 L Glucose 70 L Calculated Osmolality 272 L Calcium 8.6 Corrected Calcium 8.8 Total Bilirubin 0.8 AST 16 ALT 10 Alkaline Phosphatase 197 H Total Protein 6.5 Albumin 3.8 Globulin 2.7 Albumin/Globulin Ratio 1.4 Assessment & Plan Problem List (1) Supervision of high risk , unspecified, third trimester: Status: Acute Assessment and plan: Assessment: PostOp Day #: 1 Maternal condition: Stable Plan: General: Stable, afebrile. Continue routine monitoring. Encourage ambulation and incentive spirometry. HEENT/Cardiac/Respiratory: Hemodynamically stable. Monitor vitals. No chest pain or shortness of breath. GI: Tolerating diet, flatus/BM as documented. Bowel regimen: Colace / Senna / Miralax PRN : Voiding spontaneously / Marx to gravity (remove when ambulating). Monitor urine output and lochia. Hematology: H/H pending / reviewed. Iron supplementation: Not indicated. Transfusion if Hb < 7 and symptomatic. Incision/Perineum: Vaginal: Perineum healing well Wound care: Keep clean and dry. Monitor for signs of infection. Breast: support as needed. Nipple care with lanolin / warm compresses PRN. Pain Control: Multimodal pain control: [Acetaminophen + NSAID ? Narcotics PRN]. Continue routine post-op analgesia schedule. DVT Prophylaxis: Early ambulation. SCDs while in bed. Infection Prophylaxis: Afebrile. No antibiotics indicated unless otherwise noted. Psych: Mood stable. Monitor for depression symptoms. [place] Depression Scale prior to discharge. Contraception: Discuss prior to discharge/ in office Disposition: Continue inpatient monitoring. Anticipate discharge on day 2 if clinically stable. Routine precautions reviewed. Follow-up: 2 week wound check & 6-week visit. Time Spent With Patient Time: Total time spent is greater than 50% in coordination of care (as documented) at patient's floor/unit and/or counseling patient:
[2025-03-27] MEDS: IBUPROFEN TAB 400 MG TABLET 800 MG PO (17:39)
[2025-03-28] MEDS: IBUPROFEN TAB 400 MG TABLET 800 MG PO ×2 (02:07→14:32)
[2025-03-28 04:00] VITALS: BP 109/63; PULSE 74; RESP 18; TEMP 36.5; O2SAT 97
[2025-03-28 06:52] LABS: Basophils # (Auto) 0.1 Thou/mm3 (0.0-0.2); Basophils % (Auto) 0 % (0-2.5); Eosinophils # (Auto) 0.5 Thou/mm3 (0.0-0.5); Eosinophils % (Auto) 3 % (0-10); Hematocrit 32.9 % (36.0-46.0); Hemoglobin 10.6 g/dL (12.0-16.0); Immature Granulocytes Auto 0.12 Thou/mm3 (0.00-0.00); Lymphocytes # (Auto) 2.1 Thou/mm3 (1.0-4.8); Lymphocytes % (Auto) 12 % (10-50); Mean Corpuscular HGB Conc 32.2 g/dl (31.0-37.0); Mean Corpuscular Hemoglobin 26.1 pg (25.0-35.0); Mean Corpuscular Volume 81 fL (80-100); Monocytes # (Auto) 1.5 Thou/mm3 (0.0-0.8); Monocytes % (Auto) 9 % (0-12); Neutrophils # (Auto) 13.1 Thou/mm3 (1.8-7.7); Neutrophils % (Auto) 76 % (37-80); Nucleated Red Blood Cell # 0.00 Thou/mm3 (0.00-0.00); Nucleated Red Blood Cell % 0 /100 WBC (0); Platelet Count 270 Thou/mm3 (140-440); RDW Standard Deviation 43.2 fL (36.4-46.3); Red Blood Count 4.06 Miln/mm3 (4.00-5.20); White Blood Count 17.4 Thou/mm3 (3.6-11.0)
[2025-03-28 07:51] VITALS: BP 108/77; PULSE 78; RESP 18; TEMP 36.4; O2SAT 95
[2025-03-28] MEDS: HYDROcodone/APAP 5/325 TABLET 1 TAB PO ×2 (08:34→21:29)
--- NOTE | 2025-03-28 08:49 | ESPR_ITS ---
Subjective Subjective Interval history: The patient is a 29-year-old G1 now P1 001 status post primary low-transverse section 03/26/2025 for arrest of dilatation at 4 cm. She delivered around 9:00 PM. Patient delivered by Dr. Marrero. Today, she is resting comfortably holding her baby. The father the baby is at bedside. The patient is wearing her own pajamas. Her baby was 10 pounds 4 ounces. 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 This morning, the patient denies heavy bleeding, fevers or chills. She is tolerating a general diet and passing flatus. She is voiding without difficulty. Her pain is controlled with p.o. pain medications. She is breast and bottlefeeding. She states she is not making a lot of colostrum yet. Exam Vital Signs Temp Pulse Resp BP Pulse Ox O2 Del Method 97.6 F 78 18 108/77 95 Room Air 03/28/25 07:51 03/28/25 07:51 03/28/25 07:51 03/28/25 07:51 03/28/25 07:51 03/28/25 07:51 Narrative Exam Patient is alert and orient x 3 in no apparent distress. She is Brazilian speaking. Constitutional Constitutional: no acute distress and obese Comments: Abdomen soft nontender fundus firm incision clean dry and intact extremities show 1+ edema of her ankles. No erythema. Objective Labs 03/28/25 06:00 03/26/25 18:48 Labs: Laboratory Results - last 24 hr 03/28/25 06:00 WBC 17.4 H RBC 4.06 Hgb 10.6 L Hct 32.9 L MCV 81 MCH 26.1 MCHC 32.2 RDW Std Deviation 43.2 Plt Count 270 Neut % (Auto) 76 Lymph % (Auto) 12 [place] % (Auto) 9 Eos % (Auto) 3 Baso % (Auto) 0 Neut # (Auto) 13.1 H Lymph # (Auto) 2.1 [place] # (Auto) 1.5 H Eos # (Auto) 0.5 Baso # (Auto) 0.1 Immature Gran # (Auto) 0.12 H Absolute Nucleated RBC 0.00 Immature Gran % 1 H Nucleated RBC % 0 Assessment & Plan Problem List (1) care following delivery: Problem details: Routine postop care. Ambulate in halls. Probable discharge in the morning as patient delivered late. Tonight at about 9 PM she will be 48 hours postop. Status: Acute (2) Morbid obesity with BMI of 40.0-44.9, adult: Problem details: Lovenox now with teaching. Discharge home on Lovenox. Status: Acute Time Spent With Patient Time: Total time spent is greater than 50% in coordination of care (as documented) at patient's floor/unit and/or counseling patient: Time with patient: less than 15 minutes
[2025-03-28 12:20] VITALS: BP 128/84; PULSE 80; RESP 20; TEMP 36.7; O2SAT 99
[2025-03-28 21:15] VITALS: BP 133/90; PULSE 70; RESP 18; TEMP 37.1; O2SAT 99
[2025-03-29 04:00] VITALS: BP 141/93; PULSE 84; RESP 18; TEMP 36.4; O2SAT 98
[2025-03-29] MEDS: IBUPROFEN TAB 400 MG TABLET 800 MG PO (04:57)
[2025-03-29 08:00] VITALS: BP 136/93; RESP 18; TEMP 36.7; O2SAT 98
--- NOTE | 2025-03-29 10:49 | ESDS_ITS ---
DS: Providers Provider Date of admission: 03/24/25 19:08 Primary care physician: Physician No Primary/Family Admitting Provider: Salo Weeks MD Attending Provider on Admission: Salo Weeks MD Consults: 03/27/25 00:48 Referral Routine Comment: Attending Provider on DC: Diana Marrero MD Discharging Provider: Diana Marrero MD Anticipated date of discharge: 03/29/25 DS: Diagnosis Discharge Diagnosis (1) Morbid obesity with BMI of 40.0-44.9, adult: Status: Acute (2) care following delivery: Status: Acute (3) delivery delivered: Status: Acute (4) Large for gestational age fetus affecting mother, delivered: Status: Acute Problem List Completed Was Problem List Reviewed/Reconciled?: Yes Summary/Hosp Course Brief History: Patient doing well this morning. She completed 12 hours of dinoprostone/Cervidil No cervical change./ she just received epidural and station is still -3/ 4 cm now / Patient still wanting to try for vaginal delivery / Now she has had an AROM and has been same at 4 cm cervical dilation for over 6 hours and wants to have a C section . she had a c section on 03/26/2025 and is doing well and today is POD #3 and she would like to go home . she had a 10.4 lbs baby Peripartum Data Delivery Method: Low Transverse Episiotomy Description: None Procedures: Procedures Operation Date: 03/26/25 21:00 Actual Procedure Side Surgeon p in OB Not Applicable Diana Marrero MD had a primary LTCS on 03/26/2025 Her BP is 141/93 hb is stable Plan follow up for BP check and postop check in 1 week at the clinic complications: none Status at Discharge Cognitive/behavioral status at discharge: Patient has no/ complaints Headache no Blurry vision no Chest pain no Palpitations no Shortness of breath no Nausea or vomiting or constipation no Back pain no Dysuria no Dizziness no calf pain no She is voiding spontaneously after catheter removal yes Passing flatus yes Lochia minimal yes Hb is stable and VSS Functional status at discharge: independent ambulation Overall status at discharge: patient is progressing back to baseline Time Spent with Patient Time attestation: Total time spent providing and/or coordinating discharge services: Time spent: Less than 30 minutes Specific discharge activities: after surgery/ pelvic rest x 6 weeks Given elevated BP precautions and follow up in 1 week for post op and BP check at the clinic Exam Vital Signs Temp Pulse Resp BP Pulse Ox O2 Del Method 97.5 F 84 18 141/93 H 98 Room Air 03/29/25 04:00 03/29/25 04:00 03/29/25 04:00 03/29/25 04:00 03/29/25 04:00 03/29/25 04:00 Narrative Exam alert x3 chest clear CVS RRR NO thromegaly Uterus is nontender Uterus is firm Just below the umbilicus Bowel sounds present Abdomen soft no hernias noted/no CVAT Incision CDI No drainage Appropriately tender No calf tenderness Edema mild Additional findings Additional findings: BP is 141/93 today and Hb is 10.6 stable Patient feels good and comfortable she wants to go home and will follow up in 1 week for BP check and post op check ]continue vitamins / will call in Ibuprofen and also [place] Discharge Plan Plan Patient Disposition: HOME (Self Care) Patient condition on transfer: Stable Prescriptions/Referrals Prescriptions/Med Rec: New hydrocodone-acetaminophen 5-325 mg tablet 1 tab PO Q6H MDD 4 PRN (Reason: pain) 5 Days Qty: 20 0RF docusate sodium [Stool Softener] 100 mg capsule 100 mg PO QDAY 30 Days Qty: 30 0RF ibuprofen 600 mg tablet 600 mg PO Q6H MDD 4 PRN (Reason: fever or pain) 10 Days Qty: 40 0RF Continued folic acid 1 mg tablet 1 mg PO QDAY 90 Days Qty: 90 2RF ferrous sulfate 325 mg (65 mg iron) tablet 325 mg PO QDAY 90 Days Qty: 90 3RF Referrals: Salo Weeks MD [Physician, VOCATIONAL CASE MANAGER] No Primary/Family,Physician [Primary Care Provider] Patient/Caregiver Discharge Instructions Other Discharge Activity Instructions:: pelvic rest x 6 weeks / do not lift weight over 20 lbs and if headache or blurry vision or epigastric pain to return to ER Education Materials: Breast Care After , After a , Sec tion (), Understanding Depression, C Section Dc, Feel Healthy After Print Language: Maori Stand Alone Forms: Sara Award Info., Patient Portal Info Letter Discharge Order Discharge Orders: Discharge (Routine); Ordered 03/29/25 Ordered By: Diana Marrero Planned Discharge Date 03/29/25
--- NOTE | 2025-03-29 11:14 | PC.NURSE ---
dr figueroa rounding and per MD pt is clear to dc today.
[2025-03-29 11:51] VITALS: BP 126/81; RESP 18; TEMP 36.7; O2SAT 98
== END 2025-03-29 13:32 | disposition home or self-care (01) | DRG 788 ==
LOC: CNST 19:08 → S4SX 19:10 → S4NX 03-26 23:07 → S4SX 04-07 14:11
PROVIDERS: Obstetrics & Gynecology; Admitting Provider Obstetrics & Gynecology; Referring Provider Obstetrics & Gynecology; Visit Provider Obstetrics & Gynecology
PROC: (CPT 59514; principal; 2025-03-26 20:45)
DX: O48.0 Post-term pregnancy (principal); Z37.0 Single live birth; Z3A.41 41 weeks gestation of pregnancy; O36.63X0 Maternal care for excessive fetal growth, third trimester, not applicable or unspecified; O62.0 Primary inadequate contractions; O99.214 Obesity complicating childbirth; E66.01 Morbid (severe) obesity due to excess calories; R03.0 Elevated blood-pressure reading, without diagnosis of hypertension; O26.893 Other specified pregnancy related conditions, third trimester
CPT/HCPCS: 36415; 76805; 80053; 81001; 82570; 84156; 84550; 85025; 85384; 85610; 85730; 86780; 86850; 86900; 86901; 90707; A4217; A4314; A4649; J0131; J0689; J1885; J2274; J2371; J2590; J2765; J2795; J3010; J3490; J7120; A9270; J2270

== ENCOUNTER 2025-04-10 13:30 | Outpatient (AMB) | payer BC, MEDICAID, SELFPAY ==
[2025-04-10 14:19] VITALS: BP 152/98; PULSE 81; RESP 18; TEMP 36.6; O2SAT 97; BMI 38.2
--- NOTE | 2025-04-10 14:19 | AMBOBPPN_ITS ---
Vital Signs 04/10/25 14:19 Height 1.63 m Height Method Stated Weight 101.661 kg Weight Measurement Method Standing Scale BMI 38.2 BP 152/98 H Blood Pressure Source Automatic Cuff Blood Pressure Location Right Upper Arm Position Sitting Respiration 18 Pulse 81 Pulse Source Monitor Temp 97.9 F Temp Source Temporal Artery Scan Pulse Oximetry (%) 97 Oxygen Delivery Method Room Air Allergies/Home Meds Allergies & Medications Allergies NKA* Allergy (Uncoded 04/10/25 14:20) Medication Reconciliation ferrous sulfate 325 mg (65 mg iron) tablet 325 mg PO QDAY 90 days #90 tabs 09/10/24 [Rx Confirmed 04/10/25] folic acid 1 mg tablet 1 mg PO QDAY 90 days #90 tabs 09/10/24 [Rx Confirmed 04/10/25] docusate sodium 100 mg capsule (Stool Softener) 100 mg PO QDAY 30 days #30 caps 03/28/25 [Rx Confirmed 04/10/25] Intake Visit Data Collection New Patient or Established: Established Patient (seen at [facility] within 3 years) Reason for Visit:: CSECTION PP Seen by Clinical Staff ONLY (RN/MA): No Manager Privacy Required: No Do You Feel Safe at Home: Yes Authorities Contacted: N/A PCP or OBGYN visit in last 3 months: Yes Date of Last PCP or OBGYN visit: 03/20/25 Hx Now: No Are you currently on any form of Control: No Pain Present Currently: No Pain Scale Used: Galarza-Reyna/Numerical Pain scale:: 0 Smoking Status Smoking Status: Never smoker Immunizations Flu Vaccine in the Last 12 Months: No Flu Vaccine Exclusion Criteria: No 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 Past Medical History: No Hx Breast Cancer, No Hx Anemia, No Hx Renal Disease, No Hx Diabetes Mellitus Type 1 and No Hx Diabetes Mellitus Type 2 Questionnaires Covid-19 Vaccine Questionnaire Has patient been vacinated for Covid-19 Have you been vacinated for Covid-19: No Social History Living Situation History Marital Status: Lives With: Family Housing: House Tobacco History Smoking Status: Never smoker Second Hand Smoke Exposure: No Alcohol History Alcohol Intake: Never Substance Use History Substance Use: NONE Domestic Abuse History Do You Feel Safe at Home: Yes EPDS - PP Depression Screening [place] Pospartum Depression Screen I have been able to laugh and see the funny side of things: (0) As much as I always could I have looked forward with enjoyment to things: (0) As much as I ever did I have blamed myself unnecessarily when things went wrong: (0) No, never I have been anxious or worried for no good reason: (0) No, not at all I have felt scared or panicky for no very good reason: (0) No, not at all Things have been getting on top of me: (0) No, I have been coping as well as ever I have been so unhappy that I have had difficulty sleeping: (0) No, not at all I have felt sad or miserable: (0) No, not at all I have been so unhappy that I have been crying: (0) No, never The thought of harming myself has occurred to me: (0) Never EPDS completed yes HPI Interval History: Ansley Gore presents for follow-up approximately 2 weeks after section delivery on March 26. She delivered a 10 pound 4 ounce baby via section, with the decision for surgical delivery made due to size concerns as the baby was anticipated to weigh in the 9 pound range but ultimately weighed over 10 pounds. The patient reports her incision is healing well, with the surgical tape having already come off. She is currently wearing an abdominal binder for support, which she finds more comfortable than the belly binder initially provided by the hospital. She experienced initial constipation, which she attributes to pain medications including oxycodone that was prescribed postoperatively. Regarding , she reports attempting to breastfeed but notes that the baby's appetite exceeds her milk production, requiring supplementation. She describes episodes where the baby becomes frustrated and refuses to feed when hungry, which creates feeding challenges. The patient received an MMR vaccine while hospitalized and was told by hospital staff that she needed to use control for one month following vaccination. She was also given additional iron supplementation due to reported low levels, though she questions this recommendation. She has an obstetric history of G1 T1 L1. She delivered a female on April 26 via section with weight 10 pounds 4 ounces due to macrosomia. ROS: Gastrointestinal: Positive for constipation. Genitourinary: Negative for bladder issues. Exam General General Appearance: alert, in no apparent distress and healthy appearing Head Head exam: atraumatic Neck Neck exam: Present normal inspection and trachea midline Chest Chest inspection: Present normal inspection and symmetric chest wall rise External exam: Present normal external exam; Absent tenderness Neuro Neurological exam: Present oriented X3 Psych Psychiatric exam: Present normal affect and normal mood Office Procedures OBC Clinic LOC & Office Proc's Nursing/Assessment Patient Status: Established Patient OB Clinic Nursing Assessment: Medication Reconciliation and Vital Signs OB Clinic Coordination of Care: Complex Care and Chronic Disease 1-5, Education Complex Pt/Fam, Consent,records obtained, informed consent and Staff clarify orders Established Patient Charge Established Patient Point Assignment: 80 Established Patient Point Charge: EP Level 3 (80-115) Antepartum Initial or Follow-up Antepartum Initial Visit: Yes Assessment & Plan Diagnosis / Problem List (1) Large for gestational age fetus affecting mother, delivered: Status: Acute (2) delivery delivered: Status: Acute (3) Encounter for visit: Status: Acute Plan status post section: - Patient is approximately 2 weeks following section delivery on March 26 of a 10 pound 4 ounce infant. - section performed due to macrosomia, as the was too large for vaginal delivery. - Incision site examination reveals good healing with tape already removed. - Patient experienced initial constipation from pain medications but this has resolved. - Currently attempting but infant requires supplementation due to insufficient milk production. Plan: - Continue current abdominal binder for support. - No activity restrictions; patient may drive and exercise as tolerated, starting slowly and gradually increasing intensity. - Discontinue iron supplementation as it is unnecessary and may cause constipation and reflux. - Continue with formula supplementation as needed. - Follow-up appointment scheduled in 6 weeks. - Laboratory testing planned at 6-week visit. - control discussion planned at 6-week follow-up visit. - Patient advised that MMR vaccine received at hospital does not require one month of control as hospital staff indicated.
== END 2025-04-10 14:24 | disposition home or self-care (01) ==
LOC: HODSOBC 13:30
PROVIDERS: Supervising Provider Obstetrics & Gynecology; Visit Provider Obstetrics & Gynecology
DX: Z39.2 Encounter for routine postpartum follow-up (principal)
CPT/HCPCS: 59425; 99213; G0463

== ENCOUNTER 2025-05-14 11:32 | Outpatient (AMB) | payer BC, MEDICAID, SELFPAY ==
[2025-05-14 11:50] VITALS: BP 136/85; PULSE 78; RESP 18; TEMP 36.2; O2SAT 98; BMI 39.8
--- NOTE | 2025-05-14 11:50 | AMBOBPPN_ITS ---
Vital Signs 05/14/25 11:50 Height 1.63 m Height Method Stated Weight 105.744 kg Weight Measurement Method Standing Scale BMI 39.8 BP 136/85 H Blood Pressure Source Automatic Cuff Blood Pressure Location Right Upper Arm Position Sitting Respiration 18 Pulse 78 Pulse Source Monitor Temp 97.1 F Temp Source Temporal Artery Scan Pulse Oximetry (%) 98 Oxygen Delivery Method Room Air Allergies/Home Meds Allergies & Medications Allergies NKA* Allergy (Uncoded 04/10/25 14:20) Medication Reconciliation ferrous sulfate 325 mg (65 mg iron) tablet 325 mg PO QDAY 90 days #90 tabs 09/10/24 [Rx Confirmed 05/14/25] folic acid 1 mg tablet 1 mg PO QDAY 90 days #90 tabs 09/10/24 [Rx Confirmed 05/14/25] Intake Visit Data Collection New Patient or Established: Established Patient (seen at [facility] within 3 years) Reason for Visit:: 1 MONTH PP Seen by Clinical Staff ONLY (RN/MA): No Slate Splitter Required: No Do You Feel Safe at Home: Yes Authorities Contacted: N/A PCP or OBGYN visit in last 3 months: Yes Date of Last PCP or OBGYN visit: 03/29/25 Hx Now: No Are you currently on any form of Control: No Pain Present Currently: No Pain Scale Used: Galarza-Reyna/Numerical Pain scale:: 0 Smoking Status Smoking Status: Never smoker Immunizations Flu Vaccine in the Last 12 Months: No Flu Vaccine Exclusion Criteria: No 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 Past Medical History: No Hx Breast Cancer, No Hx Anemia, No Hx Renal Disease, No Hx Diabetes Mellitus Type 1 and No Hx Diabetes Mellitus Type 2 Questionnaires Covid-19 Vaccine Questionnaire Has patient been vacinated for Covid-19 Have you been vacinated for Covid-19: No Social History Living Situation History Marital Status: Lives With: Family Housing: House Tobacco History Smoking Status: Never smoker Second Hand Smoke Exposure: No Alcohol History Alcohol Intake: Never Substance Use History Substance Use: NONE Domestic Abuse History Do You Feel Safe at Home: Yes EPDS - PP Depression Screening [place] Pospartum Depression Screen I have been able to laugh and see the funny side of things: (0) As much as I always could I have looked forward with enjoyment to things: (0) As much as I ever did I have blamed myself unnecessarily when things went wrong: (0) No, never I have been anxious or worried for no good reason: (0) No, not at all I have felt scared or panicky for no very good reason: (0) No, not at all Things have been getting on top of me: (0) No, I have been coping as well as ever I have been so unhappy that I have had difficulty sleeping: (0) No, not at all I have felt sad or miserable: (0) No, not at all I have been so unhappy that I have been crying: (0) No, never The thought of harming myself has occurred to me: (0) Never EPDS completed yes HPI Interval History: Ansley Gore presents with bleeding from her section incision that occurred on night. She reports experiencing a small amount of bleeding from the incision site on evening, describing it as not associated with pain. The patient believes she may have stretched, which could have caused the bleeding. She reports that the bleeding appears to have stopped and the area now feels dry. The patient denies any pain or other concerning symptoms related to the incision site. She has a history of recent delivery. The patient is currently but reports insufficient milk production, requiring supplementation with formula. She has been advised to increase water intake and breastfeed more frequently to stimulate milk production. The patient mentions signing up for [facility] services and needing a referral form completed related to her height and weight measurements. She is a female with an obstetric history of G1 T1 L1. She is currently with supplementation due to insufficient milk production and lives with her living . 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 Exam Narrative Physical exam: - Abdominal: incision site examined. Appears inflamed on one side, o therwise healing appropriately. Office Procedures OBC Clinic LOC & Office Proc's Nursing/Assessment Patient Status: Established Patient OB Clinic Nursing Assessment: Medication Reconciliation, Update PMH in EMR and Vital Signs OB Clinic Coordination of Care: Complex Care and Chronic Disease 1-5, Education Complex Pt/Fam, Consent,records obtained, informed consent, Lab and Imaging orders, Results/Orders obtained and Staff clarify orders Established Patient Charge Established Patient Point Assignment: 110 Established Patient Point Charge: EP Level 3 (80-115) Antepartum Initial or Follow-up Antepartum Follow up Visit: Yes Assessment & Plan Diagnosis / Problem List (1) Large for gestational age fetus affecting mother, delivered: Status: Acute (2) delivery delivered: Status: Acute Plan incision bleeding: - Patient reports bleeding from incision on night without associated pain. - Physical examination reveals mild inflammation on one side of the incision with no other concerning findings. - The bleeding appears to have resolved and the incision site is now dry. - The inflammation and bleeding were likely caused by mechanical trauma such as stretching or scratching of the incision site. Plan: - No intervention required as bleeding has resolved and incision appears healing appropriately. hypertension follow-up: - Patient has history of blood pressure issues requiring laboratory monitoring to assess for end-organ effects and ensure resolution of hypertensive complications. Plan: - Order follow-up laboratory studies including liver function tests, kidney function tests, and hemoglobin A1c to monitor for effects of previous hypertension. Insufficient milk production: - Patient reports inadequate breast milk production requiring supplementation with formula. - Currently combination feeding with both and formula. Plan: - Continue current combination feeding approach. - Increase frequency of nipple stimulation to promote milk production. - Maintain adequate hydration. WIC program enrollment: - Patient has enrolled in WIC program and requires completion of referral form based on height and weight measurements. Plan: - Locate and complete WIC referral form. - If form unavailable, patient to return to office with form for completion.
== END 2025-05-14 12:05 | disposition home or self-care (01) ==
LOC: HODSOBC 11:32
PROVIDERS: Supervising Provider Obstetrics & Gynecology; Visit Provider Obstetrics & Gynecology
DX: Z39.2 Encounter for routine postpartum follow-up (principal); O92.4 Hypogalactia; O16.5 Unspecified maternal hypertension, complicating the puerperium
CPT/HCPCS: 99213; Z1034; G0463

== ENCOUNTER 2025-06-03 08:20 | Outpatient (AMB) | payer BC, MEDICAID, SELFPAY ==
--- NOTE | 2025-06-03 08:26 | GYNCLNT_ITS ---
Allergies/Home Meds Allergies & Medications Allergies NKA* Allergy (Uncoded 06/03/25 08:27) Medication Reconciliation norethindrone (contraceptive) 0.35 mg tablet (Antoinette) 0.35 mg PO QDAY 84 days #84 tabs 06/03/25 [Rx] Intake Visit Data Collection New Patient or Established: Established Patient (seen at [facility] within 3 years) Reason for Visit:: TELE MED LAB RESULTS Consent obtained for Telemed Visit: Yes Seen by Clinical Staff ONLY (RN/MA): No Fly Maker Required: No Do You Feel Safe at Home: Yes Authorities Contacted: N/A PCP or OBGYN visit in last 3 months: Yes Date of Last PCP or OBGYN visit: 05/14/25 Hx Now: No Are you currently on any form of Control: No Pain Present Currently: Yes Pain Location: Hip (WAIST) Pain Scale Used: Galarza-Reyna/Numerical Pain scale:: 6 Smoking Status Smoking Status: Never smoker Immunizations Flu Vaccine in the Last 12 Months: No Flu Vaccine Exclusion Criteria: No Exclusion Criteria For Telemed visit only Telemed Video/Phone Visit: Yes Verbal consent obtained for Telemed visit?: Yes Verbal Consent witness name: TABATHA EVANS MA Telemed Video/Phone visit w/Clinical Staff: 5-10 min 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 1. Little interest or pleasure in doing things: not at all 2. Feeling down, depressed, or hopeless: not at all Total score: 0 PHQ-9 3. Trouble falling or staying asleep, or sleeping too much: Not at all 4. Feeling tired or having little energy: Not at all 5. Poor appetite or overeating: Not at all 6. Feeling bad about yourself - or that you are a failure or have let yourself or your family down: Not at all 7. Trouble concentrating on things, such as reading the newspaper or watching television: Not at all 8. Moving or speaking so slowly that other people could have noticed? - Or the opposite - being so fidgety or restless that you have been moving around a lot more than usual: not at all 9. Thoughts that you would be better off or of hurting yourself in some way: Not at all Total score: 0 If you checked off any problems, how difficult have these problems made it for you to do your work, take care of things at home, or get along with other people?: not difficult at all Source: Developed by Drs. Nicolas Gregorio, Laura Lynch, Russell Martinez and colleagues, with an educational adilia from [employer]. Depression screen completed yes Social History Living Situation History Marital Status: Single Lives With: Family Housing: House Tobacco History Smoking Status: Never smoker Second Hand Smoke Exposure: No Alcohol History Alcohol Intake: Never Substance Use History Substance Use: NONE Domestic Abuse History Do You Feel Safe at Home: Yes History of Present Illness HPI Narrative Ansley Gore presents for follow-up care and contraception counseling while . She reports not feeling all that great and experiencing mood changes. She describes getting only about 3 hours of sleep and feeling scared of falling asleep due to worry that something might happen to her baby, despite knowing the baby is safe. She acknowledges this fear as irrational but cannot shake the feeling. She is currently her infant daughter. She lives with her sister who accompanies her to medical appointments and is currently on disability leave from work. The patient also inquired about her disability paperwork timeline for work reporting purposes, stating she could not locate the exact return date on her documentation. ROS: General: Negative for feeling well overall. Psychiatric: Positive for not feeling all that great, difficulty sleeping with only 3 hours of sleep, fear of falling asleep due to worry about baby's safety. Diagnostic Test Results and Labs: - Hemoglobin: 12.1 g/dL - Platelets: 386 - Liver enzymes: normal - Kidney enzymes: normal - Hemoglobin A1c: 5.8% - Uric acid: 5.8 - LDH: 125 Exam General General Appearance: alert, in no apparent distress and healthy appearing Head Head exam: atraumatic Neck Neck exam: Present normal inspection and trachea midline Chest Chest inspection: Present normal inspection and symmetric chest wall rise External exam: Present normal external exam; Absent tenderness Neuro Neurological exam: Present oriented X3 Psych Psychiatric exam: Present normal affect and normal mood Office Procedures OBC Clinic LOC & Office Proc's Nursing/Assessment Patient Status: Established Patient OB Clinic Nursing Assessment: Medication Reconciliation and Update PMH in EMR OB Clinic Coordination of Care: Complex Care and Chronic Disease 1-5, Education Complex Pt/Fam, Consent,records obtained, informed consent, Lab and Imaging orders, Results/Orders obtained and Staff clarify orders Established Patient Charge Established Patient Point Assignment: 95 Telehealth If patient is seen using Teleconference methods, complete New/Est section, but DO NOT hudson points only hudson the correct Telemed visit type Telemed Phone/Video with patient at home & ,PA,AIRPLANE FIRST OFFICER: Yes Telemed Phone/Video with patient in Clinic w/CLAUDIA Russo,[place] outside Clinic: Yes Assessment & Plan Diagnosis / Problem List (1) depression: Status: Acute (2) Encounter for visit: Status: Acute (3) Encounter for initial prescription of contraceptive pills: Status: Acute Plan Contraceptive Counseling: - Patient is currently and seeking contraceptive options. - Laboratory results are normal including hemoglobin 12.1, platelets 386, normal liver and kidney enzymes, and A1c 5.8. Plan: - Start Minipill (progestin-only oral contraceptive) as first-line option for compatibility. - Use backup contraception (condoms) for first two weeks until medication becomes effective. - Prescription sent to [facility] on [address]. - Can switch to alternative contraceptive options after 3 months when no longer affects contraceptive choices. - Alternative options discussed include Depo-Provera shot or lowest-dose estrogen combination control. Mood Concerns: - Patient reports not feeling well and experiencing sleep difficulties, getting only 3 hours of sleep due to anxiety about baby's safety. - Patient exhibits maternal anxiety with fear of something happening to baby while sleeping. - Symptoms are consistent with blues, which is expected within first two months due to hormonal changes. Plan: - Set up counseling referral. - Sleep hygiene recommendations: nap when baby sleeps to get adequate rest chunks. - Daylight exposure. - 10-15 minutes of exercise daily. - Reassurance that maternal protective instincts and anxiety are natural. - Patient education that baby is safe when in secure environment. - Patient instructed to come in for in-person visit to discuss mood concerns and counseling strategies. Disability Documentation Inquiry: - Patient needs clarification on disability leave end date for work reporting requirements. - Previously provided documentation was submitted to employer but patient cannot locate specific return date. Plan: - Patient to check online portal for disability documentation details. - Call office for extension if needed. - Office available for assistance with disability paperwork as needed.
== END 2025-06-03 09:02 | disposition home or self-care (01) ==
LOC: HODSOBC 08:20
PROVIDERS: Supervising Provider Obstetrics & Gynecology; Visit Provider Obstetrics & Gynecology
DX: Z30.011 Encounter for initial prescription of contraceptive pills (principal); O99.345 Other mental disorders complicating the puerperium; F53.0 Postpartum depression
CPT/HCPCS: 99212; Q3014; G0463